=== PATIENT | female | born 1970 | race Caucasian/White ===

== ENCOUNTER 2017-03-27 13:41 | Emergency (ER) | payer OTHER ==
[2017-03-27 13:57] VITALS: TEMP 98.3; BMI 27.1
[2017-03-27] MEDS ORDERED: ONDANSETRON 4 MG/2 ML VIAL IVPUSH ONE (14:30)
[2017-03-27] MEDS ORDERED: KETOROLAC TROMETHAMINE 30 MG/1 ML VIAL IVPUSH ONE (14:30)
[2017-03-27] MEDS ORDERED: SODIUM CHLORIDE 1,000 ML IV STA (14:30)
[2017-03-27] MEDS ORDERED: ONDANSETRON 4 MG/2 ML VIAL ONE (14:44)
[2017-03-27] MEDS ORDERED: KETOROLAC TROMETHAMINE 30 MG/1 ML VIAL ONE (14:44)
[2017-03-27 14:47] LABS: BASOPHIL 0.7 % (0-2.0); EOSINOPHIL 1.6 % (0-4.5); MCHC 34.6 g/dl (32.0-36.0); MEAN CELL VOLUME 83.6 fl (80-96); MEAN PLT VOLUME 7.2 fl (7.5-11.1); NEUTROPHILS 48.2 % (42.8-82.8); PLATELET COUNT 286 K/MM3 (134-434); RDW 12.9 % (11.6-15.6); WHITE BLOOD COUNT 6.8 K/mm3 (4.0-10.0)
[2017-03-27 14:50] LABS: URINE APPEARANCE CLEAR; URINE BILIRUBIN NEGATIVE (NEGATIVE); URINE BLOOD NEGATIVE (NEGATIVE); URINE COLOR LTYELLOW; URINE GLUCOSE (UA) NEGATIVE (NEGATIVE); URINE KETONE NEGATIVE (NEGATIVE); URINE LEUK ESTERASE NEGATIVE (NEGATIVE); URINE NITRITE NEGATIVE (NEGATIVE); URINE PROTEIN NEGATIVE (NEGATIVE); URINE UROBILINOGEN NEGATIVE mg/dL (0.2-1.0)
[2017-03-27 15:08] LABS: ALBUMIN 3.6 g/dl (3.4-5.0); ALK PHOS 71 U/L (45-117); ANION GAP 9 (8-16); BILIRUBIN,TOTAL 0.2 mg/dL (0.2-1.0); CALCIUM 8.9 mg/dL (8.5-10.1); CO2 26 mmol/L (21-32); CREATININE 0.6 mg/dL (0.55-1.02); GLUCOSE,RANDOM 88 mg/dL (74-106); SGOT/AST 15 U/L (15-37); SGPT/ALT 17 U/L (12-78); TOT PROT 6.9 g/dl (6.4-8.2)
--- NOTE | 2017-03-27 15:18 | PDOC ---
History of Present Illness - General Chief Complaint: Pain, Acute Stated Complaint: BACK PAIN Time Seen by Provider: 03/27/17 14:06 History Source: Patient Exam Limitations: No Limitations - History of Present Illness Travel History: No Initial Comments: 03/27/17 14:14 46-year-old female with complaints of Left flank pain associated with urinary frequency and chills. Patient states symptoms began a few days ago and worsened in severity to the point that she is nauseous and came to the ER for further evaluation. Patient denies history of renal colic, recent UTI, or recorded temperature, radiation of pain, diarrhea, vaginal discharge, or abdominal distention. Patient does state history of constipation and is currently on MiraLAX daily but did move her bowels yesterday. Timing/Duration: reports: getting worse, intermittent Quality: reports: moderate, sharpness Abdominal Pain Onset Location: reports: flank (lt) Pain Radiation: reports: no radiation Aggravating Factors: improves with: None Alleviating Factors: improves with: None Past History - Travel Traveled outside of the country in the last 30 days: No Close contact w/someone who was outside of country & ill: No - Past Medical History Allergies/Adverse Reactions: Allergies Allergy/AdvReac Type Severity Reaction Status Date / Time No Known Allergies Allergy Verified 03/27/17 13:58 Home Medications: Ambulatory Orders Fluoxetine HCl [Prozac] 10 mg PO DAILY 03/27/17 Nadolol [Corgard -] 20 mg PO DAILY 03/27/17 Pramipexole Di-HCl [Mirapex] 0.5 mg PO BID 03/27/17 Psychiatric Problems: Yes (anxiety) Other medical history: r ovarian cyst, polyp removed from ovary - Surgical History Abdominal Surgery: (hernia, fibroid removed from r breast) - Immunization History Immunization Up to Date: Yes - Psycho/Social/Smoking Cessation Hx Anxiety: Yes Suicidal Ideation: No Smoking Status: No Smoking History: Former smoker Have you smoked in the past 12 months: Yes Number of Cigarettes Smoked Daily: 3 Information on smoking cessation initiated: No Hx Alcohol Use: No Drug/Substance Use Hx: No Substance Use Type: None Hx Substance Use Treatment: No Patient Lives Alone: No Lives with/in: spouse/SO Review of Systems - Review of Systems Able to Perform ROS?: Yes Constitutional: Yes: Chills HEENTM: No: Symptoms Reported Respiratory: No: Symptoms reported Cardiac (ROS): No: Symptoms Reported ABD/GI: Yes: Nausea, Abdominal cramping : Yes: Frequency, Flank Pain Musculoskeletal: No: Symptoms Reported Integumentary: No: Symptoms Reported Neurological: No: Symptoms reported Hematologic/Lymphatic: No: Symptoms Reported *Physical Exam - Vital Signs Last Vital Signs Temp Pulse Resp BP Pulse Ox 98.3 F 94 H 16 146/94 99 03/27/17 13:54 03/27/17 13:54 03/27/17 13:54 03/27/17 13:54 03/27/17 13:54 - Physical Exam General Appearance: Yes: Nourished, Appropriately Dressed. No: Apparent Distress Neck: positive: Supple Respiratory/Chest: positive: Lungs Clear, Normal Breath Sounds. negative: Respiratory Distress, Accessory Muscle Use Cardiovascular: positive: Regular Rhythm, Regular Rate. negative: Murmur Gastrointestinal/Abdominal: positive: Normal Bowel Sounds, Soft, Tenderness ( left flank, ). negative: Distended, Guarding, Rebound Musculoskeletal: positive: CVA Tenderness (L) Integumentary: positive: Normal Color, Warm, Moist Neurologic: positive: Motor Strength 5/5 ( ambulatory) ED Treatment Course - LABORATORY CBC & Chemistry Diagram: 03/27/17 14:40 03/27/17 14:40 - ADDITIONAL ORDERS Additional order review: Laboratory Results 03/27/17 03/27/17 14:40 14:40 Sodium 139 Potassium 3.9 Chloride 104 Carbon Dioxide 26 Anion Gap 9 BUN 8 D Creatinine 0.6 Creat Clearance w eGFR > 60 Random Glucose 88 Calcium 8.9 Total Bilirubin 0.2 D AST 15 D ALT 17 Alkaline Phosphatase 71 Total Protein 6.9 Albumin 3.6 Urine Color Ltyellow Urine Appearance Clear Urine pH 7.0 D Urine Protein Negative Urine Glucose (UA) Negative Urine Ketones Negative Urine Blood Negative Urine Nitrite Negative Urine Bilirubin Negative Urine Urobilinogen Negative Ur Leukocyte Esterase Negative Urine HCG, Qual Negative 03/27/17 14:40 RBC 4.23 MCV 83.6 MCHC 34.6 RDW 12.9 MPV 7.2 L Neutrophils % 48.2 D Lymphocytes % 42.3 H D Monocytes % 7.2 Eosinophils % 1.6 Basophils % 0.7 - RADIOLOGY Radiology Studies Ordered: Category Date Time Status SPIRAL- RENAL-STONE CT [CT] Stat CT Scan 03/27/17 14:30 Ordered - Medications Given in the ED: ED Medications Discontinued Medications Generic Name Dose Route Start Last Admin Trade Name Leeanne PRN Reason Stop Dose Admin Ketorolac Tromethamine 30 mg 03/27/17 14:30 03/27/17 15:07 Toradol Injection - IVPUSH 03/27/17 14:31 30 mg ONCE ONE Administration Ondansetron HCl 4 mg 03/27/17 14:30 03/27/17 14:48 Zofran Injection IVPUSH 03/27/17 14:31 4 mg ONCE ONE Administration Medical Decision Making - Medical Decision Making 03/27/17 15:17 Patient with complaints of worsening left flank pain associated with chills and nausea. Patient exam had left CVA tenderness concerning for renal colic patient ordered for urine urine , analgesics, antiemetics, and CT spiral stone along with IV fluids. Patient also ordered for labs. 03/27/17 16:07 Laboratory Tests 03/27/17 03/27/17 03/27/17 14:40 14:40 14:40 WBC 6.8 Hgb 12.3 Hct 35.4 Neutrophils % 48.2 D Sodium 139 Potassium 3.9 Chloride 104 Carbon Dioxide 26 Anion Gap 9 BUN 8 D Creatinine 0.6 Random Glucose 88 Calcium 8.9 AST 15 D ALT 17 Urine Ketones Negative Urine Nitrite Negative Urine HCG, Qual Negative CT shows no hydronephrosis or stones identified. Low density changes seen in both ovaries clinical correlation for possibility of ovaries correlation with transvaginal sonographic is recommended. There is otherwise no evidence of appendicitis, diverticulitis or colitis. Pt ordered for transvaginal ultrasound 03/27/17 18:20 Ultrasound shows a small left ovarian cyst measuring 2.7 x 2.1 with normal arterial flow to both ovaries bilateral with no evidence of torsion. There is no evidence of adnexal masses or free fluid collection. Patient be discharged home to follow-up with her PCP . *DC/Admit/Observation/Transfer Diagnosis at time of Disposition: Left flank pain, Ovarian cyst - Discharge Dispostion Disposition: HOME Condition at time of disposition: Good - Referrals Referrals: Katarzyna Saenz MD [Primary Care Provider] - - Patient Instructions Printed Discharge Instructions: DI for Ovarian Cyst Additional Instructions: Please follow-up with your primary care physician and may take Tylenol Motrin for discomfort. If symptoms worsen please return to the ED.
[2017-03-27 18:50] VITALS: BP 135/75; PULSE 78
== END 2017-03-27 18:50 | disposition home or self-care (01) ==
LOC: JER 13:41
PROC: 3E0333Z Introduction of Anti-inflammatory into Peripheral Vein, Percutaneous Approach (ICD-10-PCS; principal; 2017-03-27)
PROC: 3E033GC Introduction of Other Therapeutic Substance into Peripheral Vein, Percutaneous Approach (ICD-10-PCS; 2017-03-27)
DX: N83.202 Unspecified ovarian cyst, left side (principal)
CPT/HCPCS: 36415; 74176; 76830-TC; 80053; 81003; 84703; 85025; 87086; 99283-25

== ENCOUNTER 2017-09-25 11:26 | Emergency (ER) | payer OTHER ==
[2017-09-25 12:14] VITALS: BP 139/92; PULSE 79; TEMP 98.3; BMI 27.1
--- NOTE | 2017-09-25 12:42 | PDOC ---
History of Present Illness - General Chief Complaint: Pain, Acute Stated Complaint: LUMP ON LT SIDE Time Seen by Provider: 09/25/17 12:41 History Source: Patient Exam Limitations: No Limitations - History of Present Illness Initial Comments: CHIEF COMPLAINT: 46 y/o female c/o worsening left groin pain x 1 month. HISTORY OF PRESENT ILLNESS: The patient states that over the past few days she' s noticed her left groin pain became worse. She also admits to feeling like everything is going to "fall out" of her vagina. She states for the past few days she's also developed urge incontinence. She does admit to chronic constipation and straining to have a BM which she thinks has exacerbated her symptoms. Vital signs on arrival are within normal limits. REVIEW OF SYSTEMS: GENERAL/CONSTITUTIONAL: No fever/chills. No weakness. No weight change. GASTROINTESTINAL:+lower abdominal discomfort and left pelvic pain GENITOURINARY: +urge incontinence. MUSCULOSKELETAL: No joint or muscle swelling or pain. No neck or back pain. SKIN: No rash or easy bruising. NEUROLOGIC: No headache, vertigo, loss of consciousness, or loss of sensation. PHYSICAL EXAM: GENERAL: The patient is awake, alert, and fully oriented, in no acute distress. HEAD: Normal with no signs of trauma. EYES: Pupils equal, round and reactive to light, extraocular movements intact, sclera anicteric, conjunctiva clear. ABDOMINAL: Minimal suprapubic and LLQ TTP. No rebound, guarding or rigidity. No hernias appreciated PELVIS: left inguinal region with 3cm long, movable, edematous region that is TTP. VAGINAL: Normal EXTREMITIES: Normal range of motion, no edema. NEUROLOGICAL: Normal speech, normal gait. SKIN: Warm, Dry, normal turgor, no rashes or lesions noted. Past History - Past Medical History Allergies/Adverse Reactions: Allergies Allergy/AdvReac Type Severity Reaction Status Date / Time No Known Allergies Allergy Verified 09/25/17 12:09 Home Medications: Ambulatory Orders Fluoxetine HCl [Prozac] 10 mg PO DAILY 03/27/17 Nadolol [Corgard -] 20 mg PO DAILY 03/27/17 Pramipexole Di-HCl [Mirapex] 0.5 mg PO BID 03/27/17 CVA: No COPD: No DVT: No Psychiatric Problems: Yes (anxiety) - Surgical History Abdominal Surgery: (hernia, fibroid removed from r breast) - Immunization History Immunization Up to Date: Yes - Suicide/Smoking/Psychosocial Hx Smoking Status: No Smoking History: Former smoker Have you smoked in the past 12 months: Yes Number of Cigarettes Smoked Daily: 3 If you are a former smoker, when did you quit?: 4YRS AGO Information on smoking cessation initiated: No Hx Alcohol Use: No Drug/Substance Use Hx: No Substance Use Type: None Hx Substance Use Treatment: No *Physical Exam - Vital Signs Last Vital Signs Temp Pulse Resp BP Pulse Ox 98.3 F 79 17 139/92 100 09/25/17 12:10 09/25/17 12:10 09/25/17 12:10 09/25/17 12:10 09/25/17 12:10 Medical Decision Making - Medical Decision Making A/P: 46 y/o female with recent urge incontinence most likely secondary to straining to have a BM. Also left pelvic pain with inflammation. Plan is as follows: 1. UA/culture 2. Pelvic and transvaginal ultrasound UA - normal Pelvic and transvaginal ultrasound IMPRESSION: Small left ovarian simple cyst/dominant follicle now measuring 1.3 x 1cm. Normal thickness of the endometrial stripe. However, it demonstrates a slightly lobulated contour at the fundus. Correlation with a transvaginal ultrasound exam of the pelvis in first week of the nest menstrual cycle is needed for further evaluation. If this finding persists, correlation with a hystero sonogram could be obtained to rule out underlying lesion. Patient given results and a copy to bring to her BUSINESS DEVELOPMENT CONSULTANT. SHe would like a referral to a new BUSINESS DEVELOPMENT CONSULTANT. Suggested Kiegel exercises in the meantime to help with urge incontinence. The patient verbalizes understanding of all instructions, has no further questions and is awaiting discharge. *DC/Admit/Observation/Transfer Diagnosis at time of Disposition: Urge incontinence of urine, Pelvic pain - Discharge Dispostion Disposition: HOME Condition at time of disposition: Good - Referrals Referrals: Katarzyna Saenz MD [Primary Care Provider] - Kajal Antony MD [Staff Physician] - Call tomorrow - Patient Instructions Printed Discharge Instructions: DI for Urinary Incontinence, DI for Pelvic Pain Additional Instructions: Discharge Instructions: -Perform Kiegel exercises multiple times per day to help with urinary incontinence. -Take Motrin if needed for pain -Follow up with Dr. Antony within 2 weeks -Return to the ER with any worsening or concerning symptoms - Post Discharge Activity Forms/Work/School Notes: Back to Work
[2017-09-25 13:28] LABS: URINE APPEARANCE CLEAR; URINE BILIRUBIN NEGATIVE (NEGATIVE); URINE BLOOD NEGATIVE (NEGATIVE); URINE COLOR YELLOW; URINE GLUCOSE (UA) NEGATIVE (NEGATIVE); URINE KETONE NEGATIVE (NEGATIVE); URINE LEUK ESTERASE NEGATIVE (NEGATIVE); URINE NITRITE NEGATIVE (NEGATIVE); URINE PROTEIN NEGATIVE (NEGATIVE); URINE UROBILINOGEN NEGATIVE mg/dL (0.2-1.0)
== END 2017-09-25 15:21 | disposition home or self-care (01) ==
LOC: JERFT 11:26
DX: N83.202 Unspecified ovarian cyst, left side (principal)
CPT/HCPCS: 76830-TC; 76856-TC; 81003; 87086; 99281-25

== ENCOUNTER 2017-12-02 19:39 | Emergency (ER) | payer OTHER ==
[2017-12-02 19:54] VITALS: BP 154/92; PULSE 99; TEMP 98.3; BMI 27.1
--- NOTE | 2017-12-02 19:58 | PDOC ---
Rapid Medical Evaluation Time Seen by Provider: 12/02/17 19:50 Medical Evaluation: Allergies Allergy/AdvReac Type Severity Reaction Status Date / Time No Known Allergies Allergy Verified 12/02/17 19:51 Vital Signs Temp Pulse Resp BP Pulse Ox 98.3 F 99 H 18 154/92 98 12/02/17 19:52 12/02/17 19:52 12/02/17 19:52 12/02/17 19:52 12/02/17 19:52 12/02/17 19:54 I have performed a brief in-person evaluation of this patient. The patient presents with a chief complaint of left flank pain x 3 days and constipation. States pain radiates up into back, with numbness or tingling. Denies dysuria Pertinent physical exam finding are Lungs: unlabored breathing, clear lungs abd: +hypoactive bowels, + tenderness in left lower quadrant pain skin: circular lesion noted on left lower back I have ordered the following: urinalysis, abdomen flat xray The patient will proceed to the ED for further evaluation. Discharge Disposition - Referrals Referrals: Katarzyna Saenz MD [Primary Care Provider] - - Patient Instructions - Post Discharge Activity
[2017-12-02 21:36] LABS: URINE APPEARANCE CLEAR; URINE BILIRUBIN NEGATIVE (<2.0 mg/dL); URINE BLOOD NEGATIVE (NEGATIVE); URINE COLOR STRAW; URINE GLUCOSE (UA) NEGATIVE (NEGATIVE); URINE KETONE NEGATIVE (NEGATIVE); URINE LEUK ESTERASE NEGATIVE (NEGATIVE); URINE NITRITE NEGATIVE (NEGATIVE); URINE PROTEIN NEGATIVE (NEGATIVE); URINE UROBILINOGEN NEGATIVE mg/dL (0.2-1.0)
[2017-12-02] MEDS ORDERED: KETOROLAC TROMETHAMINE 30 MG/1 ML VIAL IVPUSH ONE (22:27)
[2017-12-02 22:28] LABS: BASO % 0.8 % (0-2.0); EOS % 2.6 % (0-4.5); HEMATOCRIT 34.9 % (32.4-45.2); HEMOGLOBIN 12.3 GM/dL (10.7-15.3); LYMPH % 41.9 % (8-40); MCH 29.3 pg (25.7-33.7); MCHC 35.4 g/dl (32.0-36.0); MEAN CELL VOLUME 82.9 fl (80-96); MEAN PLT VOLUME 7.5 fl (7.5-11.1); NEUT % 46.7 % (42.8-82.8); PLATELET COUNT 281 K/MM3 (134-434); RBC 4.21 M/mm3 (3.60-5.2); RDW 13.4 % (11.6-15.6); WHITE BLOOD COUNT 6.4 K/mm3 (4.0-10.0)
--- NOTE | 2017-12-02 22:36 | PDOC ---
History of Present Illness - General Chief Complaint: Pain, Acute Stated Complaint: LEFT SIDE PAIN/RASH Time Seen by Provider: 12/02/17 19:50 - History of Present Illness Initial Comments: 12/02/17 22:33 CHIEF COMPLAINT: left flank pain HISTORY OF PRESENT ILLNESS: 47 yo F with hx of HTN, and recent removal of "polyps" presents to ED with left flank pain x 1 month. Patient states the pain has worsened since she had her polyps removed by her OBGNYN at [facility] (Dr. Luna). She states that the pain worsens from a 3-4 to 8 -9 when she moves or changes position. She denies any fever but reports "some chills" and nausea associated with severe pain. PAST MEDICAL HISTORY: Denies past medical history FAMILY HISTORY: Denies SOCIAL HISTORY: Denies tobacco, alcohol, illicit drug use. SURGICAL HISTORY: Denies ALLERGIES: No known drug allergies REVIEW OF SYSTEMS General/Constitutional: Denies fever or chills. Denies weakness, weight change. HEENT: Denies change in vision. Denies ear pain or discharge. Denies sore throat. Cardiovascular: Denies chest pain or shortness of breath. Respiratory: Denies cough, wheezing, or hemoptysis. Gastrointestinal: Denies nausea, vomiting, diarrhea or constipation. Denies rectal bleeding. Genitourinary: Denies dysuria, frequency, or change in urination. Musculoskeletal: Denies joint or muscle swelling or pain. Denies neck or back pain. Skin and breasts: Denies rash or easy bruising. Neurologic: Denies headache, vertigo, loss of consciousness, or loss of sensation. PHYSICAL EXAM General Appearance: Well-appearing, appropriately dressed. No apparent distress , no intoxication. HEENT: EOMI, PERRLA, normal ENT inspection, normal voice, TMs normal, pharynx normal. No conjunctival pallor. No photophobia, scleral icterus. Neck: Supple. Trachea midline. No tenderness, rigidity, carotid bruit, stridor , lymphadenopathy, or thyromegaly. Respiratory/Chest: Lungs CTAB. No shortness of breath, chest tenderness, respiratory distress, accessory muscle use. No crackles, rales, rhonchi, stridor , wheezing, dullness Cardiovascular: RRR. S1, S2. No JVD, murmur, bradycardia, tachycardia. Vascular Pulses: Dorsalis-Pedis (R): 2+, Dorsalis-Pedis (L): 2+ Gastrointestinal/Abdominal: Normal bowel sounds. Abdomen soft, non-distended. No tenderness or rebound tenderness. No organomegaly, pulsatile mass, guarding , hernia, hepatomegaly, splenomegaly. Lymphatic: No adenopathy, tenderness. Musculoskeletal/Extremities: Normal inspection. FROM of all extremities, normal capillary refill. Pelvis Stable. No CVA tenderness. No tenderness to extremities, pedal edema, swelling, erythema or deformity. Integumentary: Appropriate color, dry, warm. No cyanosis, erythema, jaundice or rash Neurologic: assembly mechanic II-XII intact. Fully oriented, alert. Appropriate mood/affect. Motor strength 5/5. No appreciable EOM palsy, facial droop or sensory deficit. Past History - Past Medical History Allergies/Adverse Reactions: Allergies Allergy/AdvReac Type Severity Reaction Status Date / Time No Known Allergies Allergy Verified 12/02/17 19:51 Home Medications: Ambulatory Orders Fluoxetine HCl [Prozac] 10 mg PO DAILY 03/27/17 Nadolol [Corgard -] 20 mg PO DAILY 03/27/17 Pramipexole Di-HCl [Mirapex] 0.5 mg PO BID 03/27/17 Docusate Sodium [Colace] 100 mg PO DAILY #14 capsule 12/02/17 Polyethylene Glycol 3350 [Miralax (For Daily Use) -] 17 gm PO DAILY #1 bottle Simethicone [Gas Relief] 125 mg PO BID PRN #14 capsule 12/02/17 CVA: No COPD: No DVT: No Psychiatric Problems: Yes (anxiety) - Surgical History Abdominal Surgery: (hernia, fibroid removed from r breast) - Immunization History Immunization Up to Date: Yes - Suicide/Smoking/Psychosocial Hx Smoking Status: No Smoking History: Current some day smoker Have you smoked in the past 12 months: Yes Number of Cigarettes Smoked Daily: 3 If you are a former smoker, when did you quit?: 4YRS AGO Information on smoking cessation initiated: No Hx Alcohol Use: No Drug/Substance Use Hx: No Substance Use Type: None Hx Substance Use Treatment: No *Physical Exam - Vital Signs Last Vital Signs Temp Pulse Resp BP Pulse Ox 98.3 F 99 H 18 154/92 98 12/02/17 19:52 12/02/17 19:52 12/02/17 19:52 12/02/17 19:52 12/02/17 19:52 ED Treatment Course - LABORATORY CBC & Chemistry Diagram: 12/02/17 22:17 12/02/17 22:17 - ADDITIONAL ORDERS Additional order review: Laboratory Results 12/02/17 12/02/17 21:18 21:18 Urine Color Straw Urine Appearance Clear Urine pH 6.0 Ur Specific [place] 1.004 Urine Protein Negative Urine Glucose (UA) Negative Urine Ketones Negative Urine Blood Negative Urine Nitrite Negative Urine Bilirubin Negative Urine Urobilinogen Negative Ur Leukocyte Esterase Negative Urine HCG, Qual Negative 12/02/17 22:17 RBC 4.21 MCV 82.9 MCHC 35.4 RDW 13.4 MPV 7.5 Neutrophils % 46.7 Lymphocytes % 41.9 H Monocytes % 8.0 Eosinophils % 2.6 Basophils % 0.8 - RADIOLOGY Radiology Studies Ordered: Category Date Time Status KIDNEY / RENAL US [US] Stat Ultrasound 12/02/17 22:26 Ordered *DC/Admit/Observation/Transfer Diagnosis at time of Disposition: Constipation - Discharge Dispostion Disposition: HOME Condition at time of disposition: Stable Admit: No - Prescriptions Prescriptions: Docusate Sodium [Colace] 100 mg PO DAILY #14 capsule Polyethylene Glycol 3350 [Miralax (For Daily Use) -] 17 gm PO DAILY #1 bottle Simethicone [Gas Relief] 125 mg PO BID PRN #14 capsule PRN Reason: Gas - Referrals Referrals: Katarzyna Saenz MD [Primary Care Provider] - - Patient Instructions Printed Discharge Instructions: DI for Constipation Additional Instructions: Please take medications as prescribed. As discussed, please follow up with your or first assist registered nurse by the end of the week for further evaluation and continued monitoring. If you develop any fever, chills, vomiting, or any new or worsening symptoms, please return to the ER. - Post Discharge Activity
[2017-12-02] MEDS ORDERED: KETOROLAC TROMETHAMINE 30 MG/1 ML VIAL ONE (22:39)
--- NOTE | 2017-12-02 22:44 | PDOC ---
*Physical Exam - Vital Signs Last Vital Signs Temp Pulse Resp BP Pulse Ox 98.3 F 99 H 18 154/92 98 12/02/17 19:52 12/02/17 19:52 12/02/17 19:52 12/02/17 19:52 12/02/17 19:52 ED Treatment Course - LABORATORY CBC & Chemistry Diagram: 12/02/17 22:17 12/02/17 22:17 - ADDITIONAL ORDERS Additional order review: Laboratory Results 12/02/17 12/02/17 21:18 21:18 Urine Color Straw Urine Appearance Clear Urine pH 6.0 Ur Specific [place] 1.004 Urine Protein Negative Urine Glucose (UA) Negative Urine Ketones Negative Urine Blood Negative Urine Nitrite Negative Urine Bilirubin Negative Urine Urobilinogen Negative Ur Leukocyte Esterase Negative Urine HCG, Qual Negative 12/02/17 22:17 RBC 4.21 MCV 82.9 MCHC 35.4 RDW 13.4 MPV 7.5 Neutrophils % 46.7 Lymphocytes % 41.9 H Monocytes % 8.0 Eosinophils % 2.6 Basophils % 0.8 Medical Decision Making - Medical Decision Making 12/02/17 22:44 agree with care from MARLINE Johnson *DC/Admit/Observation/Transfer Diagnosis at time of Disposition: Constipation - Discharge Dispostion Disposition: HOME Condition at time of disposition: Stable - Prescriptions Prescriptions: Docusate Sodium [Colace] 100 mg PO DAILY #14 capsule Polyethylene Glycol 3350 [Miralax (For Daily Use) -] 17 gm PO DAILY #1 bottle Simethicone [Gas Relief] 125 mg PO BID PRN #14 capsule PRN Reason: Gas - Referrals Referrals: Katarzyna Saenz MD [Primary Care Provider] - - Patient Instructions Printed Discharge Instructions: DI for Constipation Additional Instructions: Please take medications as prescribed. As discussed, please follow up with your cinder block mason by the end of the week for further evaluation and continued monitoring. If you develop any fever, chills, vomiting, or any new or worsening symptoms, please return to the ER. - Post Discharge Activity
[2017-12-02 22:56] LABS: ALBUMIN 3.4 g/dl (3.4-5.0); ANION GAP 6 (8-16); BILIRUBIN,TOTAL 0.1 mg/dL (0.2-1.0); BLOOD UREA NITROGEN 14 mg/dL (7-18); CALCIUM 8.8 mg/dL (8.5-10.1); CHLORIDE 104 mmol/L (98-107); CO2 28 mmol/L (21-32); CREATININE 0.8 mg/dL (0.55-1.02); GLUCOSE,RANDOM 105 mg/dL (74-106); LIPASE 176 U/L (73-393); POTASSIUM 3.8 mmol/L (3.5-5.1); SGOT/AST 18 U/L (15-37); SGPT/ALT 19 U/L (12-78); SODIUM 138 mmol/L (136-145)
[2017-12-02 22:57] LABS: ALK PHOS 73 U/L (45-117); TOT PROT 6.9 g/dl (6.4-8.2)
[2017-12-02] MEDS ORDERED: DOCUSATE SODIUM 100 MG CAPSULE (FP) PO ONE (23:45)
[2017-12-02] MEDS ORDERED: POLYETHYLENE GLYCOL 3350 119 GM BTL PO ONE (23:45)
[2017-12-02] MEDS ORDERED: SIMETHICONE 80 MG TAB.CHEW (FP) PO ONE (23:48)
[2017-12-03] MEDS ORDERED: DOCUSATE SODIUM 100 MG CAPSULE (FP) PO ONE (00:17)
== END 2017-12-03 00:21 | disposition home or self-care (01) ==
LOC: JER 19:39
PROC: 3E0333Z Introduction of Anti-inflammatory into Peripheral Vein, Percutaneous Approach (ICD-10-PCS; principal; 2017-12-02)
DX: K59.00 Constipation, unspecified (principal)
CPT/HCPCS: 36415; 74019-TC-FY; 76775-TC; 80053; 81003; 83690; 84703; 85025; 96374; 99283-25

== ENCOUNTER 2018-09-27 19:35 | Emergency (ER) | payer OTHER ==
[2018-09-27 19:49] VITALS: BP 119/80; PULSE 96; TEMP 97.5; BMI 26.7
--- NOTE | 2018-09-27 20:23 | PDOC ---
History of Present Illness <Nancy Contreras - Last Filed: 09/27/18 22:40> - History of Present Illness Initial Comments: 09/27/18 20:22 Ms. Kennedy is a 47 yo female w/ pmh of depression, restless leg syndrome, and "racing heart" for which she takes a beta kike who presents for evaluation of 1 day history of perceived lower extremity weakness, LLQ abdominal pain, and nausea. Patient reports she has had similar problems in the past and been evaluated for kidney or ovary problems with minimal findings. She further reports she has had increased urination today and endorses an episode of bloody bowel movement a few days ago. The patient denies chest pain, shortness of breath, headache and dizziness. Denies fever, chills, vomit, diarrhea and constipation. Denies dysuria, frequency, urgency and hematuria. <Brian Awad - Last Filed: 09/28/18 00:22> - General Chief Complaint: Nausea/Vomiting Stated Complaint: Nausea AND BODY PAIN Time Seen by Provider: 09/27/18 19:47 Past History <Nancy Contreras - Last Filed: 09/27/18 22:40> - Past Medical History Cancer: No Cardiac Disorders: No CVA: No COPD: No DVT: No Psychiatric Problems: Yes (anxiety) - Surgical History Abdominal Surgery: (hernia, fibroid removed from r breast) - Immunization History Immunization Up to Date: Yes - Suicide/Smoking/Psychosocial Hx Smoking Status: No Smoking History: Never smoked Have you smoked in the past 12 months: No Number of Cigarettes Smoked Daily: 3 If you are a former smoker, when did you quit?: 2013 Information on smoking cessation initiated: No Hx Alcohol Use: No Drug/Substance Use Hx: No Substance Use Type: None Hx Substance Use Treatment: No <Brian Awad - Last Filed: 09/28/18 00:22> - Past Medical History Allergies/Adverse Reactions: Allergies Allergy/AdvReac Type Severity Reaction Status Date / Time No Known Allergies Allergy Verified 09/27/18 20:40 Home Medications: Ambulatory Orders Fluoxetine HCl [Prozac] 10 mg PO DAILY 03/27/17 Nadolol [Corgard -] 20 mg PO DAILY 03/27/17 Pramipexole Di-HCl [Mirapex] 0.5 mg PO BID PRN 09/27/18 Pramipexole Di-HCl [Mirapex] 1 mg PO HS PRN 09/27/18 Review of Systems - Review of Systems Comments:: 09/27/18 20:23 GENERAL/CONSTITUTIONAL: No fever or chills. No weakness. HEAD, EYES, EARS, NOSE AND THROAT: No change in vision. No ear pain or discharge. No sore throat. CARDIOVASCULAR: No chest pain or shortness of breath RESPIRATORY: No cough, wheezing, or hemoptysis. GASTROINTESTINAL: +LLQ abdominal pain radiating to back. +Bowel movement w/ blood on stool as described. Nausea w/out vomiting, diarrhea or constipation. GENITOURINARY: No dysuria, frequency, or change in urination. MUSCULOSKELETAL: No joint or muscle swelling or pain. No neck or back pain. SKIN: No rash NEUROLOGIC: No headache, vertigo, loss of consciousness, or change in strength/ sensation. ENDOCRINE: No increased thirst. No abnormal weight change HEMATOLOGIC/LYMPHATIC: No anemia, easy bleeding, or history of blood clots. ALLERGIC/IMMUNOLOGIC: No hives or skin allergy. <Brian Awad - Last Filed: 09/28/18 00:22> *Physical Exam - Vital Signs Last Vital Signs Temp Pulse Resp BP Pulse Ox 97.5 F L 96 H 20 119/80 100 09/27/18 19:47 09/27/18 19:47 09/27/18 19:47 09/27/18 19:47 09/27/18 19:47 <Nancy Contreras - Last Filed: 09/27/18 22:40> - Vital Signs Last Vital Signs Temp Pulse Resp BP Pulse Ox 97.5 F L 96 H 20 119/80 100 09/27/18 19:47 09/27/18 19:47 09/27/18 19:47 09/27/18 19:47 09/27/18 19:47 - Physical Exam Comments: 09/27/18 20:23 GENERAL: Awake, alert, and fully oriented, in no acute distress HEAD: No signs of trauma, normocephalic, atraumatic EYES: PERRLA, EOMI, sclera anicteric, conjunctiva clear ENT: Auricles normal inspection, hearing grossly normal, nares patent, oropharynx clear without exudates. Moist mucosa NECK: Normal ROM, supple, no lymphadenopathy, JVD, or masses LUNGS: No distress, speaks full sentences, clear to auscultation bilaterally HEART: Regular rate and rhythm, normal S1 and S2, no murmurs, rubs or gallops, peripheral pulses normal and equal bilaterally. ABDOMEN: Soft, nontender, normoactive bowel sounds. No guarding, no rebound. No masses EXTREMITIES: Normal inspection, Normal range of motion, no edema. No clubbing or cyanosis. NEUROLOGICAL: +Limping gait on L side. Cranial nerves II through XII grossly intact. Normal speech, no focal sensorimotor deficits SKIN: Warm, Dry, normal turgor, no rashes or lesions noted. : No CMT; Left sided pelvic TTP. Os closed, no blood noted in vaginal vault. RECTAL: +External hemorrhoids noted. No stool appreciated on rectal exam. <Brian Awad - Last Filed: 09/28/18 00:22> Moderate Sedation - Procedure Monitoring Vital Signs: Procedure Monitoring Vital Signs Temperature 97.5 F L 09/27/18 19:47 Pulse Rate 96 H 09/27/18 19:47 Respiratory Rate 20 09/27/18 19:47 Blood Pressure 119/80 09/27/18 19:47 O2 Sat by Pulse Oximetry (%) 100 09/27/18 19:47 <Nancy Contreras - Last Filed: 09/27/18 22:40> - Procedure Monitoring Vital Signs: Procedure Monitoring Vital Signs Temperature 97.5 F L 09/27/18 19:47 Pulse Rate 96 H 09/27/18 19:47 Respiratory Rate 20 09/27/18 19:47 Blood Pressure 119/80 09/27/18 19:47 O2 Sat by Pulse Oximetry (%) 100 09/27/18 19:47 <Brian Awad - Last Filed: 09/28/18 00:22> ED Treatment Course - LABORATORY CBC & Chemistry Diagram: 09/27/18 21:25 09/27/18 21:25 - ADDITIONAL ORDERS Additional order review: Laboratory Results 09/27/18 09/27/18 09/27/18 21:25 20:54 20:45 Sodium 139 Potassium 4.1 Chloride 106 Carbon Dioxide 24 Anion Gap 9 BUN 14 Creatinine 0.7 Creat Clearance w eGFR > 60 Random Glucose 110 H Calcium 8.8 Total Bilirubin 0.4 AST 20 ALT 22 Alkaline Phosphatase 67 Total Protein 7.2 Albumin 3.8 Urine Color Yellow Urine Appearance Clear Urine pH 6.0 Ur Specific [place] 1.026 Urine Protein Negative Urine Glucose (UA) Negative Urine Ketones Trace H Urine Blood Negative Urine Nitrite Negative Urine Bilirubin Negative Urine Urobilinogen 2.0 H Ur Leukocyte Esterase Negative Urine HCG, Qual Negative Stool Occult Blood Negative 09/27/18 21:25 RBC 4.33 MCV 84.6 MCHC 36.0 RDW 13.7 MPV 7.3 L Neutrophils % 89.4 H D Lymphocytes % 4.7 L D Monocytes % 4.9 Eosinophils % 0.8 Basophils % 0.2 - RADIOLOGY Radiology Studies Ordered: Category Date Time Status LUMBAR SPINE CT W/O CONTRAST [CT] Stat CT Scan 09/27/18 21:06 Ordered <Nancy Contreras - Last Filed: 09/27/18 22:40> - LABORATORY CBC & Chemistry Diagram: 09/27/18 21:25 09/27/18 21:25 <Brian Awad - Last Filed: 09/28/18 00:22> Medical Decision Making - Medical Decision Making 09/28/18 00:15 Ms. Kennedy is a 47 yo female w/ pmh as described who presents for evaluation of perceived leg weakness with additional abdominal pain. Upon repeat discussion patient reports she has had similar pain for over a month. Is concerned today as she has a breast biopsy scheduled for next week 2/2 changes noted on mammogram and has become anxious over it. Patient has previously had disc bulges noted on CT; given patient's perceived leg weakness decision made to CT lumbar spine for further evaluation. Small L1-2 disc which mildly narrows left lateral recess noted as well as bulging disc osteophyte complex at L5/S1 level; may mildly compress descending right S1 nerve root. Also moderate right neural frontal narrowing which likely compresses exiting right L5 nerve. Patient given symptomatic relief with fluids and zofran as well with some improvement of symptoms. Patient made aware of CT results and will follow-up with pcp. Given chronicity of pain and previous evaluation for same pain with no acute findings decision made to withhold further evaluation at this time. Discharging to home for further outpatient evaluation. Patient verbalized agreement with this plan and will comply. No concern for acute process at this time. Laboratory Results - last 24 hr 01/09/27/18 09/27/18 20:45 20:54 21:25 WBC 9.5 RBC 4.33 Hgb 13.2 Hct 36.6 MCV 84.6 MCH 30.4 MCHC 36.0 RDW 13.7 Plt Count 281 MPV 7.3 L Absolute Neuts (auto) 8.5 H Neutrophils % 89.4 H D Lymphocytes % 4.7 L D Monocytes % 4.9 Eosinophils % 0.8 Basophils % 0.2 Nucleated RBC % 0 Sodium Potassium Chloride Carbon Dioxide Anion Gap BUN Creatinine Creat Clearance w eGFR Random Glucose Calcium Total Bilirubin AST ALT Alkaline Phosphatase Total Protein Albumin Urine Color Yellow Urine Appearance Clear Urine pH 6.0 Ur Specific [place] 1.026 Urine Protein Negative Urine Glucose (UA) Negative Urine Ketones Trace H Urine Blood Negative Urine Nitrite Negative Urine Bilirubin Negative Urine Urobilinogen 2.0 H Ur Leukocyte Esterase Negative Urine HCG, Qual Negative Stool Occult Blood Negative 09/27/18 21:25 WBC RBC Hgb Hct MCV MCH MCHC RDW Plt Count MPV Absolute Neuts (auto) Neutrophils % Lymphocytes % Monocytes % Eosinophils % Basophils % Nucleated RBC % Sodium 139 Potassium 4.1 Chloride 106 Carbon Dioxide 24 Anion Gap 9 BUN 14 Creatinine 0.7 Creat Clearance w eGFR > 60 Random Glucose 110 H Calcium 8.8 Total Bilirubin 0.4 AST 20 ALT 22 Alkaline Phosphatase 67 Total Protein 7.2 Albumin 3.8 Urine Color Urine Appearance Urine pH Ur Specific [place] Urine Protein Urine Glucose (UA) Urine Ketones Urine Blood Urine Nitrite Urine Bilirubin Urine Urobilinogen Ur Leukocyte Esterase Urine HCG, Qual Stool Occult Blood <Brian Awad - Last Filed: 09/28/18 00:22> *DC/Admit/Observation/Transfer <Nancy Contreras - Last Filed: 09/27/18 22:40> <Brian Awad - Last Filed: 09/28/18 00:22> Diagnosis at time of Disposition: Abdominal pain Qualifiers: Abdominal location: unspecified location Qualified Code(s): R10.9 - Unspecified abdominal pain Leg weakness Qualifiers: Laterality: unspecified laterality Qualified Code(s): R29.898 - Other symptoms and signs involving the musculoskeletal system - Discharge Dispostion Disposition: HOME - Referrals Referrals: Nik Shane MD, MD [Primary Care Provider] - - Patient Instructions Printed Discharge Instructions: DI for Abdominal Pain-Adult Additional Instructions: You were evaluated today in the ER for your abdominal pain and leg weakness. No concerning findings were found at this time. We performed a CT of your lumbar spine and provided you with the results. No acute findings were found at this time. Please follow-up with primary care provider next week as discussed. Return to ER if any exacerbation of pain, fever, chills, or other concerning symptoms. - Post Discharge Activity Forms/Work/School Notes: Back to Work
[2018-09-27 21:14] LABS: URINE APPEARANCE CLEAR; URINE BILIRUBIN NEGATIVE (<2.0 mg/dL); URINE COLOR YELLOW; URINE GLUCOSE (UA) NEGATIVE (NEGATIVE); URINE KETONE TRACE (NEGATIVE); URINE LEUK ESTERASE NEGATIVE (NEGATIVE); URINE NITRITE NEGATIVE (NEGATIVE); URINE PROTEIN NEGATIVE (NEGATIVE)
[2018-09-27 21:16] LABS: HCG,QUALITATIVE URINE Negative
[2018-09-27 21:38] LABS: BASO % 0.2 % (0-2.0); EOS % 0.8 % (0-4.5); HEMATOCRIT 36.6 % (32.4-45.2); HEMOGLOBIN 13.2 GM/dL (10.7-15.3); LYMPH % 4.7 % (8-40); MCH 30.4 pg (25.7-33.7); MEAN CELL VOLUME 84.6 fl (80-96); MEAN PLT VOLUME 7.3 fl (7.5-11.1); MONO % 4.9 % (3.8-10.2); NEUT % 89.4 % (42.8-82.8); PLATELET COUNT 281 K/MM3 (134-434); RBC 4.33 M/mm3 (3.60-5.2); RDW 13.7 % (11.6-15.6); WHITE BLOOD COUNT 9.5 K/mm3 (4.0-10.0)
[2018-09-27 22:11] LABS: ALBUMIN 3.8 g/dl (3.4-5.0); ALK PHOS 67 U/L (45-117); ANION GAP 9 MMOL/L (8-16); BILIRUBIN,TOTAL 0.4 mg/dL (0.2-1); BLOOD UREA NITROGEN 14 mg/dL (7-18); CALCIUM 8.8 mg/dL (8.5-10.1); CHLORIDE 106 mmol/L (98-107); CO2 24 mmol/L (21-32); CREATININE 0.7 mg/dL (0.55-1.3); GLUCOSE,RANDOM 110 mg/dL (74-106); POTASSIUM 4.1 mmol/L (3.5-5.1); SGOT/AST 20 U/L (15-37); SGPT/ALT 22 U/L (13-61); SODIUM 139 mmol/L (136-145); TOT PROT 7.2 g/dl (6.4-8.2)
[2018-09-27] MEDS ORDERED: SODIUM CHLORIDE 0.9% 500 ML INFUS.BAG IV ONE (22:33)
--- NOTE | 2018-09-27 22:45 | PDOC ---
Attending Attestation - HPI HPI: This patient is a 47 year old female with PMHx of depression, RLS, racing heart (takes a beta kike), who presents with LLQ abdominal pain that wraps around, constant, with associated nausea, an LE pain and weakness. Patient states that the leg weakness has been ongoing for about a month and a half. She also reports feeling nauseous and vomited (x1) tonight. She reports having bloody BM with mucus earlier this week. She states that she has a breast biopsy this . Family Hx: Mother from breast cancer (early 50s). 09/27/18 22:58 - Physicial Exam PE: GENERAL: Awake, alert, and fully oriented, in no acute distress HEAD: No signs of trauma EYES: PERRLA, EOMI, sclera anicteric, conjunctiva clear ENT: Auricles normal inspection, hearing grossly normal, nares patent, oropharynx clear without exudates. Moist mucosa NECK: Normal ROM, supple, no lymphadenopathy, JVD, or masses LUNGS: Breath sounds equal, clear to auscultation bilaterally. No wheezes, and no crackles HEART: Regular rate and rhythm, normal S1 and S2, no murmurs, rubs or gallops ABDOMEN: Soft, nontender, normoactive bowel sounds. No guarding, no rebound. No masses EXTREMITIES: Normal range of motion, no edema. No clubbing or cyanosis. No cords, erythema, or tenderness NEUROLOGICAL: Cranial nerves II through XII grossly intact. Normal speech. SKIN: Warm, Dry, normal turgor, no rashes or lesions noted. Agree with resident rectal and pelvic exam. <Stefani Kay - Last Filed: 09/27/18 23:00> - Resident Resident Name: Brian Awad - ED Attending Attestation I have performed the following: I have examined & evaluated the patient, The case was reviewed & discussed with the resident, I agree w/resident's findings & plan - Medical Decision Making 09/28/18 00:50 Patient Name: JESSY WEBSTER THIS IS A PRELIMINARY REPORT FROM [facility] DATE OF SERVICE: 2018-09-27 23:34:37 IMAGES: 328 EXAM: LUMBAR SPINE CT W/O CONTRAST HISTORY: Leg weakness COMPARISON: None. FINDINGS: No fracture or dislocation. There is a mild scoliosis. No suspicious bone lesions. There is a small bulge of the L1-2 disc which mildly narrows the left lateral recess. The L2-3, L3-4 and L4-5 discs appear normal although there is multilevel mild facet joint arthrosis without significant mass effect. There is a moderate-sized bulging disc osteophyte complex at the L5/S1 level as well as moderate right-sided and mild left-sided facet joint arthrosis which moderately narrows the right lateral recess and may mildly compress the descending right S1 nerve root. There is moderate right neural frontal narrowing which likely compresses the exiting right L5 nerve. IMPRESSION: Mild left lateral recess narrowing L1/2 due to disc bulge. Moderate right neural foraminal and right lateral recess narrowing at L5/S1 level due to a bulging disc ossified complex and facet joint arthrosis which may compress the exiting right L5 and descending right S1 nerve roots. Pt is feeling better with hydration and all labs are normal. She admits that she is stressed out because she has a breast mass that needs to be biopsied on Fri. Pt is tearful and we discuss the fact that the stress could be contibuting to her pains. Pt will be given days off to follow with her PMD. <Nancy Contreras - Last Filed: 09/28/18 00:56>
[2018-09-27] MEDS ORDERED: ONDANSETRON 4 MG/2 ML VIAL IVPUSH ONE (23:13)
[2018-09-27] MEDS ORDERED: ONDANSETRON 4 MG/2 ML VIAL ONE (23:42)
== END 2018-09-28 00:53 | disposition home or self-care (01) ==
LOC: JERFT 19:35 → JER 19:35
PROC: 3E033GC Introduction of Other Therapeutic Substance into Peripheral Vein, Percutaneous Approach (ICD-10-PCS; principal; 2018-09-27)
DX: R10.9 Unspecified abdominal pain (principal); R29.898 Other symptoms and signs involving the musculoskeletal system; F41.9 Anxiety disorder, unspecified
CPT/HCPCS: 36415; 72131-TC; 80053; 81003; 82272; 84703; 85025; 87086; 99282-25

== ENCOUNTER 2018-09-28 13:52 | Emergency (ER) | payer OTHER ==
[2018-09-28 14:09] VITALS: BP 105/70; PULSE 103; TEMP 99.6; BMI 26.7
[2018-09-28] MEDS ORDERED: FAMOTIDINE 20 MG/50 ML IVPB 50 MG/125 ML MG IVPB ONE (14:27)
[2018-09-28] MEDS ORDERED: SODIUM CHLORIDE 0.9% 1000 ML INFUS.BAG IV ONE (14:27)
[2018-09-28] MEDS ORDERED: ACETAMINOPHEN 1000 MG/100 ML VIAL (NON FORMULARY) IVPB ONE (14:29)
--- NOTE | 2018-09-28 14:54 | PDOC ---
Attending Attestation - HPI HPI: 09/28/18 15:00 The patient is a 47 year old female with a past medical history of depression, restless leg syndrome, and racing heart here today for evaluation of abdominal pain. She reports abdominal suprapubic pain, right flank pain, and diarrhea. She also notes nausea and vomiting which resolved yesterday. Patient was seen yesterday for similar symptoms. Patient denies headache, lightheadedness. Denies fever, chills. Denies chest pain, shortness of breath. Denies neurologic symptoms. Denies travel or suspicious food intake. Allergies: NKA PCP: Nik Shane - Medical Decision Making 09/28/18 15:00 Documentation prepared by KIMO Walton, acting as medical billing assistant for Fernanda Osuna MD. <Patrick Jonas - Last Filed: 09/28/18 14:59> - Resident Resident Name: Jae Glass - ED Attending Attestation I have performed the following: I have examined & evaluated the patient, The case was reviewed & discussed with the resident, I agree w/resident's findings & plan, Exceptions are as noted - Physicial Exam PE: GENERAL: Awake, alert, and fully oriented, in no acute distress HEAD: No signs of trauma EYES: PERRLA, EOMI, sclera anicteric, conjunctiva clear ENT: Auricles normal inspection, hearing grossly normal, nares patent, oropharynx clear without exudates. Dry mucosa NECK: Normal ROM, supple, no lymphadenopathy, JVD, or masses LUNGS: Breath sounds equal, clear to auscultation bilaterally. No wheezes, and no crackles HEART: Regular rate and rhythm, normal S1 and S2, no murmurs, rubs or gallops ABDOMEN: Soft, diffuse mild tenderness, normoactive bowel sounds. No guarding, no rebound. No masses EXTREMITIES: Normal range of motion, no edema. No clubbing or cyanosis. No cords, erythema, or tenderness NEUROLOGICAL: Cranial nerves II through XII grossly intact. Normal speech, normal gait. Motor and sensation intact SKIN: Warm, Dry, normal turgor, no rashes or lesions noted. - Medical Decision Making Pt with 2 ED visits with similar GI symptoms. No recent antibiotic use, CDiff unlikely. Will obtain CT to further evaluate. <Fernanda Osuna - Last Filed: 09/29/18 11:15>
[2018-09-28] MEDS ORDERED: FAMOTIDINE 20 MG/50 ML IVPB 20 MG/50 ML MG IVPB ONE (15:00)
[2018-09-28] MEDS ORDERED: ACETAMINOPHEN INJECTION 100 ML IVPB ONE (15:00)
--- NOTE | 2018-09-28 15:00 | PDOC ---
History of Present Illness - General Chief Complaint: Respiratory Stated Complaint: FEVER Time Seen by Provider: 09/28/18 13:58 History Source: Patient Exam Limitations: No Limitations - History of Present Illness Initial Comments: 09/28/18 14:51 The patient is a 47F with a PMH of depression, restless leg syndrome, and "racing heart" who presents to the ER with complaints of abdominal pain. The patient states that she has suprapubic abdominal pain with profuse, watery diarrhea. She cannot describe the pain any further than "it hurts" but admits to R flank pain which "also hurts". She denies antibiotic use. Past History - Past Medical History Allergies/Adverse Reactions: Allergies Allergy/AdvReac Type Severity Reaction Status Date / Time No Known Allergies Allergy Verified 09/27/18 20:40 Home Medications: Ambulatory Orders Fluoxetine HCl [Prozac] 10 mg PO DAILY 03/27/17 Nadolol [Corgard -] 20 mg PO DAILY 03/27/17 Pramipexole Di-HCl [Mirapex] 0.5 mg PO BID PRN 09/27/18 Pramipexole Di-HCl [Mirapex] 1 mg PO HS PRN 09/27/18 Acetaminophen [Tylenol] 650 mg PO QID PRN 09/28/18 Cancer: No Cardiac Disorders: No CVA: No COPD: No DVT: No Psychiatric Problems: Yes (anxiety) - Surgical History Abdominal Surgery: (hernia, fibroid removed from r breast) - Immunization History Immunization Up to Date: Yes - Suicide/Smoking/Psychosocial Hx Smoking Status: No Smoking History: Smoker current status UNK Have you smoked in the past 12 months: No Number of Cigarettes Smoked Daily: 3 If you are a former smoker, when did you quit?: 2013 Hx Alcohol Use: No Drug/Substance Use Hx: No Substance Use Type: None Hx Substance Use Treatment: No Review of Systems - Review of Systems Able to Perform ROS?: Yes Comments:: 09/28/18 15:08 GENERAL/CONSTITUTIONAL: Positive for fevers. No chills. No weakness. HEAD, EYES, EARS, NOSE AND THROAT: No change in vision. No ear pain or discharge. No sore throat. CARDIOVASCULAR: No chest pain, palpitations, or lightheadedness. RESPIRATORY: No cough, wheezing, shortness of breath, or hemoptysis. GASTROINTESTINAL: Positive for nausea, vomiting, diarrhea, and abdominal pain. GENITOURINARY: Positive for R flank pain. No dysuria, frequency, hematuria, or change in urination. MUSCULOSKELETAL: Positive for myalgias. No joint or muscle swelling or pain. No neck or back pain. SKIN: No rash or lesions. NEUROLOGIC: No headache, numbness, tingling, focal weakness, loss of consciousness, or change in strength/sensation. Is the patient limited Finnish proficient: No *Physical Exam - Vital Signs Last Vital Signs Temp Pulse Resp BP Pulse Ox 99.6 F 103 H 22 H 105/70 99 09/28/18 14:00 09/28/18 14:00 09/28/18 14:00 09/28/18 14:00 09/28/18 14:00 - Physical Exam Comments: 09/28/18 15:12 GENERAL: Well developed, well nourished. Awake and alert. In mild distress. HEENT: Normocephalic, atraumatic. Hearing grossly normal. Moist mucous membranes. PERRLA, EOMI. No conjunctival pallor. NECK: Supple. Full ROM. No JVD. CARDIOVASCULAR: Regular rate and rhythm. No murmurs, rubs, or gallops. PULMONARY: No evidence of respiratory distress. Lungs clear to auscultation bilaterally. No wheezing, rales or rhonchi. ABDOMINAL: Soft. Tender to deep palpation in suprapubic abdomen. Non-distended. No rebound or guarding. GENITOURINARY: Mild R CVA tenderness. MUSCULOSKELETAL: Normal range of motion at all joints. No bony deformities or tenderness. EXTREMITIES: No cyanosis. No clubbing. No edema. No calf tenderness or swelling. SKIN: Warm and dry. Normal capillary refill. No rashes. No jaundice. NEUROLOGICAL: Alert, awake, appropriate. Cranial nerves 2-12 grossly intact. Normal speech. Gait is normal without ataxia. PSYCHIATRIC: Cooperative. Good eye contact. Appropriate mood and affect. Moderate Sedation - Procedure Monitoring Vital Signs: Procedure Monitoring Vital Signs Temperature 99.6 F 09/28/18 14:00 Pulse Rate 103 H 09/28/18 14:00 Respiratory Rate 22 H 09/28/18 14:00 Blood Pressure 105/70 09/28/18 14:00 O2 Sat by Pulse Oximetry (%) 99 09/28/18 14:00 ED Treatment Course - LABORATORY CBC & Chemistry Diagram: 09/28/18 14:44 09/28/18 14:44 - RADIOLOGY Radiology Studies Ordered: Category Date Time Status ABDOMEN & PELVIS CT WITH CONTR [CT] Stat CT Scan 09/28/18 14:28 Ordered Medical Decision Making - Medical Decision Making 09/28/18 15:13 The patient is a 47F with a PMH of depression and restless leg syndrome who presents to the ER for 2 days of abdominal pain and diarrhea with resolved nausea and vomiting, as well as mild R flank pain. THe patient presented yesterday for atypical leg weakness with CT lumbar negative, UA and upreg negative, and CBC and CMP negative. Repeating CBC, CMP to look for infectious process or electrolyte abnormality 2/2 diarrhea. Will order CTAP for undifferentiated abdominal pain. Pending labs and imaging. 09/28/18 16:07 Ca 7.8, corrects to 8.0. Otherwise, CBC and CMP negative. Will reassess. 09/28/18 16:12 Pt states she's feeling better. Pending CTAP. 09/28/18 18:32 CTAP negative. Pt is complaining of continuing headache. Will give toradol and PO challenge. 09/28/18 19:11 Pt passed PO challenge and feels better. WIll d/c w/ PCP f/u. *DC/Admit/Observation/Transfer Diagnosis at time of Disposition: Abdominal pain Qualifiers: Abdominal location: lower abdomen, unspecified Qualified Code(s): R10.30 - Lower abdominal pain, unspecified - Discharge Dispostion Disposition: HOME Condition at time of disposition: Stable Decision to Admit order: No - Referrals - Patient Instructions Printed Discharge Instructions: DI for Abdominal Pain-Adult Additional Instructions: Please follow up with your primary care physician in 2-3 days. Please return to the ER if you have any signs or symptoms of chest pain, shortness of breath, uncontrollable fever, chills, nausea, vomiting, numbness, tingling, or weakness in any part of your body, changes in vision, or slurred speech. Please return to the ER if symptoms persist, worsen, or new symptoms arise. - Post Discharge Activity
[2018-09-28 15:05] LABS: BASO % 0.1 % (0-2.0); EOS % 0.2 % (0-4.5); HEMATOCRIT 33.5 % (32.4-45.2); HEMOGLOBIN 11.7 GM/dL (10.7-15.3); LYMPH % 12.3 % (8-40); MCH 29.5 pg (25.7-33.7); MCHC 34.9 g/dl (32.0-36.0); MEAN CELL VOLUME 84.5 fl (80-96); MEAN PLT VOLUME 7.1 fl (7.5-11.1); MONO % 6.9 % (3.8-10.2); NEUT % 80.5 % (42.8-82.8); PLATELET COUNT 233 K/MM3 (134-434); RBC 3.97 M/mm3 (3.60-5.2); RDW 13.9 % (11.6-15.6); WHITE BLOOD COUNT 5.1 K/mm3 (4.0-10.0)
[2018-09-28 15:20] LABS: ALBUMIN 3.2 g/dl (3.4-5.0); ALK PHOS 59 U/L (45-117); ANION GAP 6 MMOL/L (8-16); BILIRUBIN,TOTAL 0.5 mg/dL (0.2-1); BLOOD UREA NITROGEN 12 mg/dL (7-18); CALCIUM 7.8 mg/dL (8.5-10.1); CHLORIDE 106 mmol/L (98-107); CO2 23 mmol/L (21-32); CREATININE 0.7 mg/dL (0.55-1.3); GLUCOSE,RANDOM 90 mg/dL (74-106); LIPASE 138 U/L (73-393); POTASSIUM 3.8 mmol/L (3.5-5.1); SGOT/AST 16 U/L (15-37); SGPT/ALT 18 U/L (13-61); SODIUM 135 mmol/L (136-145); TOT PROT 6.5 g/dl (6.4-8.2)
[2018-09-28] MEDS ORDERED: KETOROLAC TROMETHAMINE 30 MG/1 ML VIAL IVPUSH ONE (18:31)
[2018-09-28] MEDS ORDERED: KETOROLAC TROMETHAMINE 15 MG/ML VIAL ONE (18:36)
== END 2018-09-28 19:18 | disposition home or self-care (01) ==
LOC: JER 13:52
PROC: 3E033GC Introduction of Other Therapeutic Substance into Peripheral Vein, Percutaneous Approach (ICD-10-PCS; principal; 2018-09-28)
PROC: 3E033NZ Introduction of Analgesics, Hypnotics, Sedatives into Peripheral Vein, Percutaneous Approach (ICD-10-PCS; 2018-09-28)
PROC: 3E0333Z Introduction of Anti-inflammatory into Peripheral Vein, Percutaneous Approach (ICD-10-PCS; 2018-09-28)
DX: R10.30 Lower abdominal pain, unspecified (principal); G25.81 Restless legs syndrome; F41.8 Other specified anxiety disorders; F32.9 Major depressive disorder, single episode, unspecified
CPT/HCPCS: 36415; 74177-TC; 80053; 83690; 85025; 87804; 99283-25; J0131; J7030

== ENCOUNTER 2019-01-22 13:32 | Emergency (ER) | payer OTHER ==
--- NOTE | 2019-01-22 13:51 | PDOC ---
Rapid Medical Evaluation Time Seen by Provider: 01/22/19 13:49 Medical Evaluation: Allergies Allergy/AdvReac Type Severity Reaction Status Date / Time No Known Allergies Allergy Verified 09/27/18 20:40 01/22/19 13:49 I have performed a brief in-person evaluation of this patient. The patient presents with a chief complaint of: mid-RUQ abd pain x 4 days, " felt like hunger pain and has gotten worse", denies fever/NV, +diarrhea "all night last night", denies hx cholecystecomy Pertinent physical exam findings: tenderness to epigastrum/RUQ I have ordered the following: labs, IV, urine The patient will proceed to the ED for further evaluation.
[2019-01-22 13:52] VITALS: BP 125/66; PULSE 89; TEMP 99; BMI 26.4
[2019-01-22] MEDS ORDERED: SODIUM CHLORIDE 1,000 ML IV STA (13:54)
[2019-01-22] MEDS ORDERED: PANTOPRAZOLE SODIUM 40 MG in SODIUM CHLORIDE 100 ML IVPB ONE (13:54)
[2019-01-22] MEDS ORDERED: KETOROLAC TROMETHAMINE 30 MG/1 ML VIAL IVPUSH ONE (13:54)
[2019-01-22] MEDS ORDERED: ONDANSETRON 4 MG/2 ML VIAL IVPUSH ONE (13:54)
[2019-01-22] MEDS ORDERED: PANTOPRAZOLE SODIUM 40 MG/100 ML BAG IVPB ONE (14:41)
[2019-01-22] MEDS ORDERED: KETOROLAC TROMETHAMINE 30 MG/1 ML VIAL ONE (14:42)
[2019-01-22] MEDS ORDERED: ONDANSETRON 4 MG/2 ML VIAL ONE (14:42)
[2019-01-22 15:24] LABS: BASO % 0.3 % (0-2.0); EOS % 1.8 % (0-4.5); HEMATOCRIT 36.7 % (32.4-45.2); HEMOGLOBIN 12.4 GM/dL (10.7-15.3); LYMPH % 32.1 % (8-40); MCH 28.4 pg (25.7-33.7); MCHC 33.8 g/dl (32.0-36.0); MEAN CELL VOLUME 84.2 fl (80-96); MEAN PLT VOLUME 7.5 fl (7.5-11.1); MONO % 9.2 % (3.8-10.2); NEUT % 56.6 % (42.8-82.8); PLATELET COUNT 282 K/MM3 (134-434); RBC 4.36 M/mm3 (3.60-5.2); RDW 13.6 % (11.6-15.6); WHITE BLOOD COUNT 6.8 K/mm3 (4.0-10.0)
--- NOTE | 2019-01-22 15:39 | PDOC ---
History of Present Illness - General History Source: Patient Exam Limitations: No Limitations - History of Present Illness Travel History: No Initial Comments: 01/22/19 14:06 48 y/o female presents to the ED with complaints of epigastric pain associate nausea vomiting and diarrhea since yesterday. Patient denies fever, chills, weakness but states unable to tolerate anything by mouth secondary to the pain. Patient with history of anxiety and denies current alcohol abuse Timing/Duration: reports: constant Quality: reports: moderate, burning, cramping Abdominal Pain Onset Location: reports: epigastric Pain Radiation: reports: RUQ Activities at Onset: reports: none Aggravating Factors: improves with: None Alleviating Factors: improves with: None <Yenifer Neil - Last Filed: 01/22/19 17:28> <Alida Cota - Last Filed: 01/22/19 17:35> - General Chief Complaint: Pain Stated Complaint: SEVERE ABD PAIN Time Seen by Provider: 01/22/19 13:49 Past History - Travel Traveled outside of the country in the last 30 days: No Close contact w/someone who was outside of country & ill: No - Past Medical History Cancer: No Cardiac Disorders: No CVA: No COPD: No DVT: No Psychiatric Problems: Yes (anxiety) - Surgical History Abdominal Surgery: (hernia, fibroid removed from r breast) - Immunization History Immunization Up to Date: Yes - Suicide/Smoking/Psychosocial Hx Smoking Status: No Smoking History: Former smoker Have you smoked in the past 12 months: No Number of Cigarettes Smoked Daily: 3 If you are a former smoker, when did you quit?: 2013 Information on smoking cessation initiated: No Hx Alcohol Use: No Drug/Substance Use Hx: No Substance Use Type: None Hx Substance Use Treatment: No Patient Lives Alone: No Lives with/in: spouse/SO <Yenifer Neil - Last Filed: 01/22/19 17:28> <Alida Cota - Last Filed: 01/22/19 17:35> - Past Medical History Allergies/Adverse Reactions: Allergies Allergy/AdvReac Type Severity Reaction Status Date / Time No Known Allergies Allergy Verified 01/22/19 13:50 Home Medications: Ambulatory Orders Fluoxetine HCl [Prozac] 10 mg PO DAILY 03/27/17 Nadolol [Corgard -] 20 mg PO DAILY 03/27/17 Pramipexole Di-HCl [Mirapex] 0.5 mg PO BID PRN 09/27/18 Pramipexole Di-HCl [Mirapex] 1 mg PO HS PRN 09/27/18 Acetaminophen [Tylenol] 650 mg PO QID PRN 09/28/18 Ondansetron HCl [Zofran] 4 mg PO TID PRN #12 tablet 01/22/19 Pantoprazole Sodium [Protonix] 40 mg PO DAILY #7 tablet. 01/22/19 Review of Systems - Review of Systems Able to Perform ROS?: Yes Constitutional: Yes: Loss of Appetite HEENTM: No: Symptoms Reported Respiratory: No: Symptoms reported Cardiac (ROS): No: Symptoms Reported ABD/GI: Yes: Diarrhea, Nausea, Poor Appetite, Poor Fluid Intake, Vomiting, Indigestion, Abdominal cramping : No: Symptoms Reported Musculoskeletal: No: Symptoms Reported Integumentary: No: Symptoms Reported Neurological: No: Symptoms reported Endocrine: No: Symptoms Reported Hematologic/Lymphatic: No: Symptoms Reported <Yenifer Neil - Last Filed: 01/22/19 17:28> *Physical Exam - Vital Signs Last Vital Signs Temp Pulse Resp BP Pulse Ox 99 F 89 18 125/66 97 01/22/19 13:50 01/22/19 13:50 01/22/19 13:50 01/22/19 13:50 01/22/19 13:50 - Physical Exam General Appearance: Yes: Nourished, Appropriately Dressed. No: Apparent Distress HEENT: positive: EOMI, HIRA, TMs Normal, Pharynx Normal (dry). negative: Pale Conjunctivae Respiratory/Chest: positive: Lungs Clear, Normal Breath Sounds. negative: Respiratory Distress, Accessory Muscle Use Cardiovascular: positive: Regular Rhythm, Regular Rate. negative: Murmur Gastrointestinal/Abdominal: positive: Soft, Tenderness (epigastric and ruq. - murphys) Musculoskeletal: negative: CVA Tenderness Extremity: positive: Normal Inspection Integumentary: positive: Normal Color, Warm, Moist Neurologic: positive: Motor Strength 5/5 (ambulatory) <Yenifer Neil - Last Filed: 01/22/19 17:28> - Vital Signs Last Vital Signs Temp Pulse Resp BP Pulse Ox 99 F 89 18 125/66 97 01/22/19 13:50 01/22/19 13:50 01/22/19 13:50 01/22/19 13:50 01/22/19 13:50 <Alida Cota - Last Filed: 01/22/19 17:35> ED Treatment Course - LABORATORY CBC & Chemistry Diagram: 01/22/19 15:10 01/22/19 15:10 <JolynnYenifer mitchell - Last Filed: 01/22/19 17:28> - LABORATORY CBC & Chemistry Diagram: 01/22/19 15:10 01/22/19 15:10 - ADDITIONAL ORDERS Additional order review: Laboratory Results 01/22/19 01/22/19 01/22/19 16:36 15:10 15:10 PT with INR INR Sodium 136 Potassium 3.7 Chloride 105 Carbon Dioxide 25 Anion Gap 7 L BUN 12 Creatinine 0.8 Est GFR (CKD-EPI)AfAm 100.33 Est GFR (CKD-EPI)NonAf 86.57 Random Glucose 83 Calcium 8.7 Total Bilirubin 0.4 AST 15 ALT 17 Alkaline Phosphatase 60 Total Protein 7.1 Albumin 3.6 Lipase 126 Urine Color Yellow Urine Appearance Clear Urine pH 5.5 Ur Specific [place] 1.014 Urine Protein Negative Urine Glucose (UA) Negative Urine Ketones Trace H Urine Blood Negative Urine Nitrite Negative Urine Bilirubin Negative Urine Urobilinogen 0.2 Ur Leukocyte Esterase Negative 01/22/19 15:10 PT with INR 11.90 INR 1.01 Sodium Potassium Chloride Carbon Dioxide Anion Gap BUN Creatinine Est GFR (CKD-EPI)AfAm Est GFR (CKD-EPI)NonAf Random Glucose Calcium Total Bilirubin AST ALT Alkaline Phosphatase Total Protein Albumin Lipase Urine Color Urine Appearance Urine pH Ur Specific [place] Urine Protein Urine Glucose (UA) Urine Ketones Urine Blood Urine Nitrite Urine Bilirubin Urine Urobilinogen Ur Leukocyte Esterase 01/22/19 15:10 RBC 4.36 MCV 84.2 MCHC 33.8 RDW 13.6 MPV 7.5 Neutrophils % 56.6 D Lymphocytes % 32.1 D Monocytes % 9.2 Eosinophils % 1.8 D Basophils % 0.3 - Medications Given in the ED: ED Medications Discontinued Medications Generic Name Dose Route Start Last Admin Trade Name Freq PRN Reason Stop Dose Admin Pantoprazole Sodium 40 mg/ 100 mls @ 200 mls/hr 01/22/19 13:54 01/22/19 15:11 Sodium Chloride IVPB 01/22/19 14:23 200 mls/hr ONCE ONE Administration Sodium Chloride 1,000 mls @ 1,000 mls/hr 01/22/19 13:54 01/22/19 15:11 Normal Saline - IV 01/22/19 14:53 1,000 mls/hr ASDIR STA Administration Ketorolac Tromethamine 30 mg 01/22/19 13:54 01/22/19 15:11 Toradol Injection - IVPUSH 01/22/19 13:55 30 mg ONCE ONE Administration Ondansetron HCl 4 mg 01/22/19 13:54 01/22/19 15:11 Zofran Injection IVPUSH 01/22/19 13:55 4 mg ONCE ONE Administration <Alida Cota - Last Filed: 01/22/19 17:35> Medical Decision Making - Medical Decision Making 01/22/19 15:05 Chief complaint: 48-year-old female with history of anxiety and alcohol abuse presents ED with epigastric right upper quadrant pain associated nausea vomiting and diarrhea since yesterday. exam. Patient tender to epigastric and right upper quadrant. Vital signs stable patient appears anxious. Plan. Labs, fluids, antiemetics, Toradol, protonix, urine, and abd u/s 01/22/19 15:46 Laboratory Tests 03/27/17 01/22/19 01/22/19 14:40 15:10 15:10 WBC 6.8 Hgb 12.4 Hct 36.7 Absolute Neuts (auto) 3.9 Lipase 126 Urine HCG, Qual Negative 01/22/19 17:17 Ultrasound shows no sonographic evidence of cholelithiasis or acute cholecystitis. There is noted definitive biliary tract dilatation. 01/22/19 17:28 Laboratory Tests 01/22/19 01/22/19 16:36 16:48 Urine Ketones Trace H Urine Blood Negative Urine Nitrite Negative Urine Bilirubin Negative Ur Leukocyte Esterase Negative Urine HCG, Qual Pending Discharge home with protonix and Zofran. Patient also given supportive care construction's in regards to diet and f/u <Yenifer Neil - Last Filed: 01/22/19 17:28> - Medical Decision Making The patient was seen and evaluated in conjunction with midlevel provider under my direct supervision, ancillary studies were reviewed. 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 HPI, workup/dispo as outlined. VS reviewed, wnl. 01/22/19 17:35 <Alida Cota - Last Filed: 01/22/19 17:35> *DC/Admit/Observation/Transfer <JolynnYenifer mitchell - Last Filed: 01/22/19 17:28> <Alida Cota - Last Filed: 01/22/19 17:35> Diagnosis at time of Disposition: Abdominal pain, Diarrhea - Discharge Dispostion Disposition: HOME Condition at time of disposition: Improved - Prescriptions Prescriptions: Ondansetron HCl [Zofran] 4 mg PO TID PRN #12 tablet PRN Reason: Nausea And/Or Vomiting Pantoprazole Sodium [Protonix] 40 mg PO DAILY #7 tablet.dr - Patient Instructions Printed Discharge Instructions: DI for Diarrhea and Traveler's Diarrhea -- Adult, DI for Nausea -- Adult Additional Instructions: Recommend following a bland diet for the next 48 hours and advance as tolerated. Please take Zofran as needed for nausea and take protonix to alleviate acid in the stomach - Post Discharge Activity Forms/Work/School Notes: Back to Work
[2019-01-22 15:48] LABS: ALBUMIN 3.6 g/dl (3.4-5.0); BILIRUBIN,TOTAL 0.4 mg/dL (0.2-1); CALCIUM 8.7 mg/dL (8.5-10.1); CREATININE 0.8 mg/dL (0.55-1.3); POTASSIUM 3.7 mmol/L (3.5-5.1); TOT PROT 7.1 g/dl (6.4-8.2)
[2019-01-22 15:51] LABS: INR 1.01 (0.83-1.09); PROTHROMBIN TIME (PATIENT) 11.9 SEC (9.7-13.0)
[2019-01-22 17:22] LABS: PH,URINE 5.5 (5.0-8.0); URINE APPEARANCE CLEAR; URINE BILIRUBIN NEGATIVE (NEGATIVE); URINE COLOR YELLOW; URINE GLUCOSE (UA) NEGATIVE (NEGATIVE); URINE KETONE TRACE (NEGATIVE); URINE LEUK ESTERASE NEGATIVE (NEGATIVE); URINE NITRITE NEGATIVE (NEGATIVE); URINE PROTEIN NEGATIVE (NEGATIVE); URINE UROBILINOGEN 0.2 mg/dL (0.2-1.0)
== END 2019-01-22 17:37 | disposition home or self-care (01) ==
LOC: JER 13:32
PROC: 3E0333Z Introduction of Anti-inflammatory into Peripheral Vein, Percutaneous Approach (ICD-10-PCS; principal; 2019-01-22)
PROC: 3E033GC Introduction of Other Therapeutic Substance into Peripheral Vein, Percutaneous Approach (ICD-10-PCS; 2019-01-22)
PROC: 3E0337Z Introduction of Electrolytic and Water Balance Substance into Peripheral Vein, Percutaneous Approach (ICD-10-PCS; 2019-01-22)
DX: R19.7 Diarrhea, unspecified (principal); R10.9 Unspecified abdominal pain
CPT/HCPCS: 36415; 76705-TC; 80053; 81003; 83690; 84703; 85025; 85610; 99282-25; J7030

== ENCOUNTER 2019-08-03 16:57 | Emergency (ER) | payer OTHER ==
[2019-08-03 17:40] VITALS: TEMP 98.3; BMI 24.9
--- NOTE | 2019-08-03 17:42 | PDOC ---
Rapid Medical Evaluation Time Seen by Provider: 08/03/19 17:35 Medical Evaluation: Allergies Allergy/AdvReac Type Severity Reaction Status Date / Time No Known Allergies Allergy Verified 01/22/19 13:50 Vital Signs Temp Pulse Resp BP Pulse Ox 98.3 F 89 18 131/74 98 08/03/19 17:37 08/03/19 17:37 08/03/19 17:37 08/03/19 17:37 08/03/19 17:37 08/03/19 17:41 Pt c/o: lower abd cramping with loose mucusy stool x 3-4 days, no gi hx Pt on brief exam: vss, mild llq pain Pt ordered for: labs and urine Pt to proceed to the ED Discharge Disposition - Diagnosis Proctitis Abdominal pain Qualifiers: Abdominal location: lower abdomen, unspecified Qualified Code(s): R10.30 - Lower abdominal pain, unspecified - Discharge Dispostion Disposition: HOME Condition at time of disposition: Stable - Prescriptions Prescriptions: Docusate Sodium [Colace] 100 mg PO BID #60 capsule Hydrocortisone Acetate [Anusol Hc Suppository -] 25 mg RC DAILY #14 supp.rect - Referrals Referrals: Marcos Lainez MD [Staff Physician] - Nik Shane MD, MD [Primary Care Provider] - - Patient Instructions Printed Discharge Instructions: Constipation Additional Instructions: drink plenty of fluids start a high fiber diet. use anusol as prescribed. take colace twice daily - Post Discharge Activity Work/School Note: Back to Work
[2019-08-03 18:45] LABS: BASO % 0.6 % (0-2.0); EOS % 2.8 % (0-4.5); HEMATOCRIT 37.2 % (32.4-45.2); HEMOGLOBIN 12.7 GM/dL (10.7-15.3); LYMPH % 31.8 % (8-40); MCH 28.7 pg (25.7-33.7); MEAN CELL VOLUME 84.2 fl (80-96); MEAN PLT VOLUME 7.8 fl (7.5-11.1); MONO % 8.6 % (3.8-10.2); NEUT % 56.2 % (42.8-82.8); PLATELET COUNT 291 K/MM3 (134-434); RBC 4.42 M/mm3 (3.60-5.2); RDW 13.1 % (11.6-15.6); WHITE BLOOD COUNT 7.1 K/mm3 (4.0-10.0)
[2019-08-03 18:48] LABS: URINE APPEARANCE CLEAR; URINE BILIRUBIN NEGATIVE (NEGATIVE); URINE COLOR YELLOW; URINE GLUCOSE (UA) NEGATIVE (NEGATIVE); URINE KETONE NEGATIVE (NEGATIVE); URINE LEUK ESTERASE NEGATIVE (NEGATIVE); URINE NITRITE NEGATIVE (NEGATIVE); URINE PROTEIN NEGATIVE (NEGATIVE); URINE UROBILINOGEN 0.2 mg/dL (0.2-1.0)
[2019-08-03 19:04] LABS: BILIRUBIN,TOTAL 0.2 mg/dL (0.2-1); CALCIUM 9.5 mg/dL (8.5-10.1); CREATININE 1.1 mg/dL (0.55-1.3); POTASSIUM 3.8 mmol/L (3.5-5.1); TOT PROT 7.6 g/dl (6.4-8.2)
--- NOTE | 2019-08-03 19:33 | PDOC ---
History of Present Illness - General Chief Complaint: Pain Stated Complaint: ABD PAIN/FEVER Time Seen by Provider: 08/03/19 17:35 - History of Present Illness Initial Comments: 08/03/19 19:46 48 YEAR OLD female with lower abdominal pain, diarrhea (mucousy, bloody), + chills, denies fever + nausea, denies vomiting. denies urinary symptoms PMhx: constipation prozac and adderall 08/03/19 19:48 08/03/19 23:22 Past History - Past Medical History Allergies/Adverse Reactions: Allergies Allergy/AdvReac Type Severity Reaction Status Date / Time No Known Allergies Allergy Verified 01/22/19 13:50 Home Medications: Ambulatory Orders Fluoxetine HCl [Prozac] 10 mg PO DAILY 03/27/17 Nadolol [Corgard -] 20 mg PO DAILY 03/27/17 Docusate Sodium [Colace] 100 mg PO BID #60 capsule 08/03/19 Hydrocortisone Acetate [Anusol Hc Suppository -] 25 mg RC DAILY #14 supp.rect Cancer: No Cardiac Disorders: No CVA: No COPD: No DVT: No GI Disorders: Yes (hemorrihoids) Psychiatric Problems: Yes (anxiety) - Surgical History Abdominal Surgery: (hernia, fibroid removed from r breast) - Immunization History Immunization Up to Date: Yes - Psycho Social/Smoking Cessation Hx Smoking Status: No Smoking History: Unknown if ever smoked Have you smoked in the past 12 months: No Number of Cigarettes Smoked Daily: 3 If you are a former smoker, when did you quit?: 2013 Hx Alcohol Use: No Drug/Substance Use Hx: No Substance Use Type: None Hx Substance Use Treatment: No Review of Systems - Review of Systems Able to Perform ROS?: Yes Is the patient limited Cuban proficient: No ABD/GI: Yes: Diarrhea, Nausea, Abdominal cramping *Physical Exam - Vital Signs Last Vital Signs Temp Pulse Resp BP Pulse Ox 98.3 F 89 18 131/74 98 08/03/19 17:37 08/03/19 17:37 08/03/19 17:37 08/03/19 17:37 08/03/19 17:37 - Physical Exam General Appearance: Yes: Appropriately Dressed Respiratory/Chest: positive: Lungs Clear, Normal Breath Sounds Gastrointestinal/Abdominal: positive: Normal Bowel Sounds, Tender (RLQ, LLQ), Soft Rectal Exam: positive: heme negative stool, hemorrhoids (multiple external hemorrhoids), other (no hard stool in the rectal area) Musculoskeletal: positive: Normal Inspection. negative: CVA Tenderness Extremity: positive: Normal Capillary Refill, Normal Inspection, Normal Range of Motion Integumentary: positive: Normal Color, Dry, Warm ED Treatment Course - LABORATORY CBC & Chemistry Diagram: 08/03/19 17:25 08/03/19 17:42 - ADDITIONAL ORDERS Additional order review: Laboratory Results 08/03/19 08/03/19 17:58 17:42 Sodium 140 Potassium 3.8 Chloride 104 Carbon Dioxide 30 Anion Gap 6 L BUN 16.0 Creatinine 1.1 Est GFR (CKD-EPI)AfAm 68.27 Est GFR (CKD-EPI)NonAf 58.91 Random Glucose 72 L Calcium 9.5 Total Bilirubin 0.2 AST 16 ALT 19 Alkaline Phosphatase 76 Total Protein 7.6 Albumin 4.0 Urine Color Yellow Urine Appearance Clear Urine pH 6.0 Ur Specific [place] 1.021 Urine Protein Negative Urine Glucose (UA) Negative Urine Ketones Negative Urine Blood Negative Urine Nitrite Negative Urine Bilirubin Negative Urine Urobilinogen 0.2 Ur Leukocyte Esterase Negative 08/03/19 17:25 RBC 4.42 MCV 84.2 MCHC 34.0 RDW 13.1 MPV 7.8 Neutrophils % 56.2 Lymphocytes % 31.8 Monocytes % 8.6 Eosinophils % 2.8 Basophils % 0.6 ED Progress Note - Progress Note Progress Note: 08/04/19 02:41 A: proctitis; abdominal pain P: labs TVUS CTAP: + proctitis. incidental findgings discussed with patient Discharge - Discharge Information Problems reviewed: Yes Clinical Impression/Diagnosis: Proctitis Abdominal pain Qualifiers: Abdominal location: lower abdomen, unspecified Qualified Code(s): R10.30 - Lower abdominal pain, unspecified Condition: Stable Disposition: HOME - Additional Discharge Information Prescriptions: Docusate Sodium [Colace] 100 mg PO BID #60 capsule Hydrocortisone Acetate [Anusol Hc Suppository -] 25 mg RC DAILY #14 supp.rect - Follow up/Referral Referrals: Nik Shane MD, MD [Primary Care Provider] - Marcos Lainez MD [Staff Physician] - - Patient Discharge Instructions Patient Printed Discharge Instructions: Constipation Additional Instructions: drink plenty of fluids start a high fiber diet. use anusol as prescribed. take colace twice daily - Post Discharge Activity Work/Back to School Note: Back to Work
[2019-08-03] MEDS ORDERED: ONDANSETRON 4 MG/2 ML VIAL IVPUSH ONE (19:53)
[2019-08-03] MEDS ORDERED: SODIUM CHLORIDE 1,000 ML IV STA (19:53)
--- NOTE | 2019-08-03 20:10 | PDOC ---
*Physical Exam - Vital Signs Last Vital Signs Temp Pulse Resp BP Pulse Ox 98.3 F 89 18 131/74 98 08/03/19 17:37 08/03/19 17:37 08/03/19 17:37 08/03/19 17:37 08/03/19 17:37 ED Treatment Course - LABORATORY CBC & Chemistry Diagram: 08/03/19 17:25 08/03/19 17:42 - ADDITIONAL ORDERS Additional order review: Laboratory Results 08/03/19 08/03/19 17:58 17:42 Sodium 140 Potassium 3.8 Chloride 104 Carbon Dioxide 30 Anion Gap 6 L BUN 16.0 Creatinine 1.1 Est GFR (CKD-EPI)AfAm 68.27 Est GFR (CKD-EPI)NonAf 58.91 Random Glucose 72 L Calcium 9.5 Total Bilirubin 0.2 AST 16 ALT 19 Alkaline Phosphatase 76 Total Protein 7.6 Albumin 4.0 Urine Color Yellow Urine Appearance Clear Urine pH 6.0 Ur Specific [place] 1.021 Urine Protein Negative Urine Glucose (UA) Negative Urine Ketones Negative Urine Blood Negative Urine Nitrite Negative Urine Bilirubin Negative Urine Urobilinogen 0.2 Ur Leukocyte Esterase Negative 08/03/19 17:25 RBC 4.42 MCV 84.2 MCHC 34.0 RDW 13.1 MPV 7.8 Neutrophils % 56.2 Lymphocytes % 31.8 Monocytes % 8.6 Eosinophils % 2.8 Basophils % 0.6 Medical Decision Making - Medical Decision Making 08/03/19 20:09 Patient seen by the advanced practice provider under my direct supervision. Ancillary testing reviewed as necessary. I agree with plan as outlined by the advanced practice provider. Discharge - Discharge Information Problems reviewed: Yes Clinical Impression/Diagnosis: Abdominal pain Qualifiers: Abdominal location: lower abdomen, unspecified Qualified Code(s): R10.30 - Lower abdominal pain, unspecified - Follow up/Referral Referrals: Nik Shane MD, MD [Primary Care Provider] - - Patient Discharge Instructions - Post Discharge Activity
[2019-08-03] MEDS ORDERED: ONDANSETRON 4 MG/2 ML VIAL ONE (20:14)
[2019-08-03 23:57] VITALS: BP 128/75; PULSE 76
== END 2019-08-03 23:45 | disposition home or self-care (01) ==
LOC: JER 16:57
PROC: 3E033GC Introduction of Other Therapeutic Substance into Peripheral Vein, Percutaneous Approach (ICD-10-PCS; principal; 2019-08-03)
DX: R10.30 Lower abdominal pain, unspecified (principal); K62.89 Other specified diseases of anus and rectum; K64.9 Unspecified hemorrhoids; Z87.891 Personal history of nicotine dependence; F41.9 Anxiety disorder, unspecified; K46.9 Unspecified abdominal hernia without obstruction or gangrene
CPT/HCPCS: 36415; 74177-TC; 76830-TC; 80053; 81003; 82272; 84703; 85025; 87086; 99282-25; J7030; Q9967

== ENCOUNTER 2020-08-13 15:37 | Emergency (ER) | payer OTHER ==
[2020-08-13 15:56] VITALS: BP 125/81; PULSE 81; BMI 26.4
== END 2020-08-13 19:06 | disposition home or self-care (01) ==
LOC: JER 15:37 → JERFT 15:37
DX: M79.604 Pain in right leg (principal); M71.21 Synovial cyst of popliteal space [Baker], right knee
CPT/HCPCS: 93971-TC; 99284-25

== ENCOUNTER 2020-10-20 08:24 | Emergency (ER) | payer OTHER, BC ==
[2020-10-20 08:41] VITALS: TEMP 98.2; BMI 25.3
[2020-10-20] MEDS ORDERED: SODIUM CHLORIDE 0.9% 500 ML INFUS.BAG IV ONE (09:20)
[2020-10-20 09:39] LABS: BASO % 0.5 % (0-2.0); EOS % 1.8 % (0-4.5); HEMATOCRIT 34.5 % (32.4-45.2); HEMOGLOBIN 12.1 GM/dL (10.7-15.3); MCH 29.2 pg (25.7-33.7); MEAN CELL VOLUME 83.4 fl (80-96); MEAN PLT VOLUME 7.2 fl (7.5-11.1); NEUT % 60.7 % (42.8-82.8); PLATELET COUNT 300 K/MM3 (134-434); RBC 4.13 M/mm3 (3.60-5.2); RDW 13.3 % (11.6-15.6); WHITE BLOOD COUNT 5.9 K/mm3 (4.0-10.0)
[2020-10-20 09:45] LABS: INR 0.97 (0.83-1.09); PROTHROMBIN TIME (PATIENT) 11.8 SEC (9.7-13.0)
[2020-10-20 09:48] LABS: ACTIVATED PTT 31.8 SECONDS (25.2-36.5)
[2020-10-20 10:08] LABS: POTASSIUM 4.3 mmol/L (3.5-5.1)
[2020-10-20 10:09] LABS: CALCIUM 8.9 mg/dL (8.5-10.1)
[2020-10-20 10:10] LABS: ALBUMIN 3.5 g/dl (3.4-5.0); BLOOD UREA NITROGEN 12.6 mg/dL (7-18)
[2020-10-20 10:13] LABS: CREATININE 0.7 mg/dL (0.55-1.3)
[2020-10-20 10:15] LABS: BILIRUBIN,TOTAL 0.4 mg/dL (0.2-1); TOT PROT 7.1 g/dl (6.4-8.2)
[2020-10-20 10:24] LABS: URINE APPEARANCE CLEAR; URINE BILIRUBIN NEGATIVE (NEGATIVE); URINE COLOR YELLOW; URINE GLUCOSE (UA) NEGATIVE (NEGATIVE); URINE KETONE NEGATIVE (NEGATIVE); URINE LEUK ESTERASE NEGATIVE (NEGATIVE); URINE NITRITE NEGATIVE (NEGATIVE); URINE PROTEIN NEGATIVE (NEGATIVE)
[2020-10-20 12:26] VITALS: BP 116/72; PULSE 79
== END 2020-10-20 11:50 | disposition home or self-care (01) ==
LOC: JER 08:24
DX: R25.2 Cramp and spasm (principal)
CPT/HCPCS: 36415; 74177-TC; 80053; 81003; 82272; 85025; 85610; 85730; 87086; 99285-25; Q9967

== ENCOUNTER 2021-10-12 11:53 | Emergency (ER) | payer BC, OTHER ==
[2021-10-12 12:16] VITALS: BP 129/85; PULSE 114; TEMP 97.9; BMI 25.3
== END 2021-10-12 14:09 | disposition home or self-care (01) ==
LOC: JERFT 11:53
DX: L03.116 Cellulitis of left lower limb (principal); M79.672 Pain in left foot
CPT/HCPCS: 73630-TC-LT; 99284-25

== ENCOUNTER 2021-12-13 10:53 | Emergency (ER) | payer OTHER ==
[2021-12-13 10:58] VITALS: TEMP 98.2; BMI 26.0
[2021-12-13 12:51] LABS: BASO % 0.7 % (0-2.0); EOS % 1.8 % (0-4.5); HEMATOCRIT 36.2 % (32.4-45.2); HEMOGLOBIN 12.3 GM/dL (10.7-15.3); MEAN CELL VOLUME 82.2 fl (80-96); MEAN PLT VOLUME 6.8 fl (7.5-11.1); MONO % 7.3 % (3.8-10.2); NEUT % 54.2 % (42.8-82.8); PLATELET COUNT 321 10^3/uL (134-434); RDW 12.8 % (11.6-15.6); WHITE BLOOD COUNT 5.4 K/mm3 (4.0-10.0)
[2021-12-13 13:02] LABS: INR 1.01 (0.83-1.09); PROTHROMBIN TIME (PATIENT) 11.6 SEC (9.7-13.0)
[2021-12-13 13:04] LABS: ACTIVATED PTT 33.2 SECONDS (25.2-36.5)
[2021-12-13 13:16] LABS: URINE APPEARANCE CLEAR; URINE BILIRUBIN NEGATIVE (NEGATIVE); URINE COLOR YELLOW; URINE GLUCOSE (UA) NEGATIVE (NEGATIVE); URINE KETONE NEGATIVE (NEGATIVE); URINE LEUK ESTERASE NEGATIVE (NEGATIVE); URINE NITRITE NEGATIVE (NEGATIVE); URINE PROTEIN NEGATIVE (NEGATIVE); URINE UROBILINOGEN 0.2 mg/dL (0.2-1.0)
[2021-12-13 13:19] LABS: CALCIUM 9.6 mg/dL (8.5-10.1)
[2021-12-13 13:20] LABS: ALBUMIN 3.7 g/dl (3.4-5.0)
[2021-12-13 13:22] LABS: CREATININE 0.8 mg/dL (0.55-1.3)
[2021-12-13 13:24] LABS: BILIRUBIN,TOTAL 0.4 mg/dL (0.2-1); TOT PROT 7.7 g/dl (6.4-8.2)
[2021-12-13] MEDS ORDERED: SODIUM CHLORIDE 1,000 ML IV STA (14:54)
[2021-12-13] MEDS ORDERED: ACETAMINOPHEN 1000 MG/100 ML BAG IVPB ONE (14:54)
[2021-12-13] MEDS ORDERED: ACETAMINOPHEN INJECTION 100 ML IVPB ONE (14:57)
[2021-12-13 17:31] VITALS: BP 129/86; PULSE 83
== END 2021-12-13 17:32 | disposition home or self-care (01) ==
LOC: JER 10:53
PROC: 3E0333Z Introduction of Anti-inflammatory into Peripheral Vein, Percutaneous Approach (ICD-10-PCS; principal; 2021-12-13)
PROC: 3E0337Z Introduction of Electrolytic and Water Balance Substance into Peripheral Vein, Percutaneous Approach (ICD-10-PCS; 2021-12-13)
DX: R10.9 Unspecified abdominal pain (principal); K62.5 Hemorrhage of anus and rectum
CPT/HCPCS: 36415; 74177-TC; 80053; 81003; 82272; 83690; 84703; 85025; 85610; 85730; 87086; 99285-25; Q9967

== ENCOUNTER 2022-10-21 10:32 | Emergency (ER) | payer OTHER ==
[2022-10-21 10:36] VITALS: BP 135/91; PULSE 117; RESP 18; TEMP 98.7; BMI 27.1
== END 2022-10-21 12:18 | disposition home or self-care (01) ==
LOC: JERFT 10:32
DX: R59.0 Localized enlarged lymph nodes (principal)
CPT/HCPCS: 76642-TC-RT; 99284-25

== ENCOUNTER 2023-05-23 04:09 | Day surgery (SDC) | payer OTHER ==
[2023-05-16 17:22] VITALS: BMI 26.5
[2023-05-23 11:00] VITALS: RESP 20
[2023-05-23] MEDS ORDERED: LIDOCAINE HCL 1%, 10 MG/ML (20ML VIAL) ONE ×2 (12:23→13:43)
[2023-05-23] MEDS ORDERED: BUPIVACAINE HCL/PF 0.5% (5MG/ML) 10 ML VIAL ONE (12:23)
[2023-05-23] MEDS ORDERED: MIDAZOLAM HCL 2 MG/2 ML SINGLE DOSE VIAL ONE ×3 (13:09→13:40)
[2023-05-23] MEDS ORDERED: ceFAZolin SODIUM 1 GM VIAL ONE (13:09)
[2023-05-23] MEDS ORDERED: ceFAZolin SODIUM 1 GM VIAL IVPB ONE (13:14)
[2023-05-23] MEDS ORDERED: LIDOCAINE HCL 1%, 10 MG/ML (20ML VIAL) INF ONE ×2 (13:17)
[2023-05-23] MEDS ORDERED: KETOROLAC TROMETHAMINE 30 MG/1 ML VIAL ONE (13:24)
[2023-05-23] MEDS ORDERED: BUPIVACAINE HCL/PF 0.5% (5MG/ML) 10 ML VIAL IJ ONE ×2 (13:35→14:40)
[2023-05-23 15:16] VITALS: TEMP 97.5
[2023-05-23] MEDS ORDERED: oxyCODONE HCL 5 MG TABLET PO ONE (15:30)
[2023-05-23] MEDS ORDERED: oxyCODONE HCL 5 MG TABLET ONE (15:32)
[2023-05-23 17:04] VITALS: BP 140/86; PULSE 98
== END 2023-05-23 16:25 | disposition home or self-care (01) ==
LOC: JASU-SURG 04:09
PROVIDERS: ATTEND Podiatrist Foot Surgery
PROC: 0QBN0ZZ Excision of Right Metatarsal, Open Approach (ICD-10-PCS; principal; 2023-05-23 13:00)
DX: M21.611 Bunion of right foot (principal); M20.11 Hallux valgus (acquired), right foot
CPT/HCPCS: 28298; C1713; 88305-TC; 88311-TC

== ENCOUNTER 2023-05-30 12:56 | Inpatient (IN) | payer OTHER ==
[2023-05-30] MEDS ORDERED: VANCOMYCIN 1 GM PREMIX - 1 GM/200 ML BAG IVPB ONE (14:37)
[2023-05-30] MEDS ORDERED: VANCOMYCIN 1 GRAM (PRE-DOCKED) 1,000 MG/250 ML BAG IVPB ONE (15:30)
[2023-05-30 15:53] LABS: BASO % 0.8 % (0-2.0); EOS % 2.3 % (0-4.5); HEMATOCRIT 33.6 % (32.4-45.2); HEMOGLOBIN 11.1 GM/dL (10.7-15.3); LYMPH % 30.4 % (8-40); MCH 27.4 pg (25.7-33.7); MCHC 32.9 g/dl (32.0-36.0); MEAN CELL VOLUME 83.1 fl (80-96); MEAN PLT VOLUME 6.9 fl (7.5-11.1); MONO % 7.2 % (3.8-10.2); NEUT % 59.3 % (42.8-82.8); PLATELET COUNT 342 10^3/uL (134-434); RBC 4.04 M/mm3 (3.60-5.2); WHITE BLOOD COUNT 6.6 K/mm3 (4.0-10.0)
[2023-05-30 16:12] LABS: CHLORIDE 107 mmol/L (98-107); POTASSIUM 4.1 mmol/L (3.5-5.1); SODIUM 140 mmol/L (136-145)
[2023-05-30 16:14] LABS: CALCIUM 8.7 mg/dL (8.5-10.1)
[2023-05-30 16:15] LABS: ALBUMIN 3.4 g/dl (3.4-5.0); ANION GAP 4 MMOL/L (8-16); BLOOD UREA NITROGEN 11.2 mg/dL (7-18); CO2 28 mmol/L (21-32); GLUCOSE,RANDOM 86 mg/dL (74-106)
[2023-05-30 16:18] LABS: CREATININE 0.8 mg/dL (0.55-1.3); SGOT/AST 19 U/L (15-37); SGPT/ALT 24 U/L (13-61)
[2023-05-30 16:19] LABS: TOT PROT 6.9 g/dl (6.4-8.2)
[2023-05-30 16:20] LABS: BILIRUBIN,TOTAL 0.2 mg/dL (0.2-1)
[2023-05-30 16:21] LABS: ALK PHOS 82 U/L (45-117)
[2023-05-30 16:33] LABS: ERYTHROCYTE SEDIMENTATION RATE 37 mm/hr (0-30)
[2023-05-30 17:50] VITALS: BMI 27.4
[2023-05-30] MEDS: ATORVASTATIN CA 20 MG TABLET (FP) PO SCH (21:22)
[2023-05-30] MEDS: ACETAMINOPHEN 325 MG TABLET (FP) PO PRN (23:35)
[2023-05-31] MEDS ORDERED: VANCOMYCIN 1,000 MG in DEXTROSE 5%-WATER - 250 ML IVPB SCH ×2 (01:00→04:00)
[2023-05-31] MEDS ORDERED: VANCOMYCIN/WATER FOR INJ (PEG) 1,000 MG/200 ML BAG IVPB SCH (04:00)
[2023-05-31 08:06] LABS: BASO % 0.7 % (0-2.0); EOS % 2.5 % (0-4.5); HEMATOCRIT 32.5 % (32.4-45.2); HEMOGLOBIN 10.8 GM/dL (10.7-15.3); LYMPH % 25.1 % (8-40); MCH 27.9 pg (25.7-33.7); MCHC 33.4 g/dl (32.0-36.0); MEAN CELL VOLUME 83.6 fl (80-96); MEAN PLT VOLUME 6.9 fl (7.5-11.1); MONO % 6.6 % (3.8-10.2); NEUT % 65.1 % (42.8-82.8); PLATELET COUNT 312 10^3/uL (134-434); RBC 3.88 M/mm3 (3.60-5.2); WHITE BLOOD COUNT 6.9 K/mm3 (4.0-10.0)
[2023-05-31 08:39] LABS: ALBUMIN 3.2 g/dl (3.4-5.0); BLOOD UREA NITROGEN 12.3 mg/dL (7-18); CALCIUM 8.5 mg/dL (8.5-10.1)
[2023-05-31 08:42] LABS: CREATININE 0.7 mg/dL (0.55-1.3); TOT PROT 6.4 g/dl (6.4-8.2)
[2023-05-31 08:45] LABS: BILIRUBIN,TOTAL 0.4 mg/dL (0.2-1)
[2023-05-31] MEDS: ENOXAPARIN NA (PORCINE) 40 MG/0.4 ML DISP.SYRIN SQ SCH (09:13)
[2023-05-31] MEDS: ACETAMINOPHEN 325 MG TABLET (FP) PO PRN (09:14)
[2023-05-31] MEDS: FLUoxetine HCL 20 MG CAPSULE PO SCH (09:14)
[2023-05-31] MEDS ORDERED: PATIENT'S OWN MEDICATION (NON-FORMULARY) (Linaclotide [Linzess] 290 MCG Capsule) PO SCH (10:00)
[2023-05-31] MEDS ORDERED: PIPERACILLIN/TAZOBACTAM 3.375 GM VIAL IVPB ONE (11:51)
[2023-05-31] MEDS: PIPERACILLIN/TAZOB 3.375 GM 3.375 GM in DEXTROSE 5%-WATER - 50 ML IVPB SCH ×2 (11:54→17:59)
[2023-05-31] MEDS: ATORVASTATIN CA 20 MG TABLET (FP) PO SCH (21:28)
[2023-06-01] MEDS: PIPERACILLIN/TAZOB 3.375 GM 3.375 GM in DEXTROSE 5%-WATER - 50 ML IVPB SCH ×3 (01:49→17:23)
[2023-06-01] MEDS: ACETAMINOPHEN 325 MG TABLET (FP) PO PRN (01:56)
[2023-06-01] MEDS: ENOXAPARIN NA (PORCINE) 40 MG/0.4 ML DISP.SYRIN SQ SCH (09:06)
[2023-06-01] MEDS: FLUoxetine HCL 20 MG CAPSULE PO SCH (09:06)
[2023-06-01 09:33] LABS: EOS % 3.3 % (0-4.5); HEMATOCRIT 31.9 % (32.4-45.2); HEMOGLOBIN 10.8 GM/dL (10.7-15.3); LYMPH % 34.1 % (8-40); MCH 28.1 pg (25.7-33.7); MCHC 33.7 g/dl (32.0-36.0); MEAN CELL VOLUME 83.4 fl (80-96); MEAN PLT VOLUME 7.1 fl (7.5-11.1); NEUT % 54.6 % (42.8-82.8); PLATELET COUNT 315 10^3/uL (134-434); RBC 3.83 M/mm3 (3.60-5.2); RDW 13.1 % (11.6-15.6); WHITE BLOOD COUNT 6.1 K/mm3 (4.0-10.0)
[2023-06-01 10:08] LABS: CALCIUM 8.6 mg/dL (8.5-10.1)
[2023-06-01 10:09] LABS: BLOOD UREA NITROGEN 11.9 mg/dL (7-18)
[2023-06-01 10:12] LABS: CREATININE 0.8 mg/dL (0.55-1.3)
[2023-06-01] MEDS: ATORVASTATIN CA 20 MG TABLET (FP) PO SCH (21:43)
[2023-06-02] MEDS: PIPERACILLIN/TAZOB 3.375 GM 3.375 GM in DEXTROSE 5%-WATER - 50 ML IVPB SCH ×3 (02:45→17:25)
[2023-06-02] MEDS: ACETAMINOPHEN 325 MG TABLET (FP) PO PRN ×2 (04:51→20:58)
[2023-06-02] MEDS: FLUoxetine HCL 20 MG CAPSULE PO SCH (09:30)
[2023-06-02] MEDS: ENOXAPARIN NA (PORCINE) 40 MG/0.4 ML DISP.SYRIN SQ SCH (09:30)
[2023-06-02 10:15] LABS: HEMOGLOBIN 11.4 GM/dL (10.7-15.3); MCH 28.5 pg (25.7-33.7); MCHC 34.6 g/dl (32.0-36.0); MEAN CELL VOLUME 82.3 fl (80-96); MEAN PLT VOLUME 7.2 fl (7.5-11.1); PLATELET COUNT 319 10^3/uL (134-434); RBC 4.01 M/mm3 (3.60-5.2); RDW 13.5 % (11.6-15.6); WHITE BLOOD COUNT 5.9 K/mm3 (4.0-10.0)
[2023-06-02 10:47] LABS: POTASSIUM 3.8 mmol/L (3.5-5.1)
[2023-06-02 11:03] LABS: ALBUMIN 3.4 g/dl (3.4-5.0); BLOOD UREA NITROGEN 12.6 mg/dL (7-18); CALCIUM 9.3 mg/dL (8.5-10.1); MAGNESIUM 2.3 mg/dL (1.8-2.4)
[2023-06-02 11:07] LABS: CREATININE 0.8 mg/dL (0.55-1.3); PHOSPHOROUS 4.4 mg/dL (2.5-4.9)
[2023-06-02 11:08] LABS: BILIRUBIN,TOTAL 0.4 mg/dL (0.2-1)
[2023-06-02 11:09] LABS: TOT PROT 6.8 g/dl (6.4-8.2)
[2023-06-02] MEDS: PANTOPRAZOLE 40 MG TABLET PO SCH (16:37)
[2023-06-02] MEDS: ATORVASTATIN CA 20 MG TABLET (FP) PO SCH (20:59)
[2023-06-03] MEDS: PIPERACILLIN/TAZOB 3.375 GM 3.375 GM in DEXTROSE 5%-WATER - 50 ML IVPB SCH ×3 (01:02→17:20)
[2023-06-03] MEDS: ENOXAPARIN NA (PORCINE) 40 MG/0.4 ML DISP.SYRIN SQ SCH (09:43)
[2023-06-03] MEDS: FLUoxetine HCL 20 MG CAPSULE PO SCH (09:44)
[2023-06-03] MEDS: PANTOPRAZOLE 40 MG TABLET PO SCH (09:45)
[2023-06-03 09:58] LABS: HEMOGLOBIN 11.4 GM/dL (10.7-15.3); MCH 28.3 pg (25.7-33.7); MCHC 33.6 g/dl (32.0-36.0); MEAN CELL VOLUME 84.2 fl (80-96); MEAN PLT VOLUME 7.2 fl (7.5-11.1); PLATELET COUNT 325 10^3/uL (134-434); RBC 4.04 M/mm3 (3.60-5.2); WHITE BLOOD COUNT 5.3 K/mm3 (4.0-10.0)
[2023-06-03 14:25] LABS: ALBUMIN 3.5 g/dl (3.4-5.0); BLOOD UREA NITROGEN 13.3 mg/dL (7-18); MAGNESIUM 2.2 mg/dL (1.8-2.4)
[2023-06-03 14:29] LABS: BILIRUBIN,TOTAL 0.3 mg/dL (0.2-1); CREATININE 0.8 mg/dL (0.55-1.3); PHOSPHOROUS 4.2 mg/dL (2.5-4.9)
[2023-06-03] MEDS: ACETAMINOPHEN 325 MG TABLET (FP) PO PRN (21:12)
[2023-06-03] MEDS: ATORVASTATIN CA 20 MG TABLET (FP) PO SCH (21:12)
[2023-06-04] MEDS: PIPERACILLIN/TAZOB 3.375 GM 3.375 GM in DEXTROSE 5%-WATER - 50 ML IVPB SCH ×2 (01:06→10:47)
[2023-06-04] MEDS: PANTOPRAZOLE 40 MG TABLET PO SCH (09:14)
[2023-06-04] MEDS: FLUoxetine HCL 20 MG CAPSULE PO SCH (09:14)
[2023-06-04 10:23] LABS: HEMATOCRIT 35.8 % (32.4-45.2); HEMOGLOBIN 11.7 GM/dL (10.7-15.3); MCH 27.6 pg (25.7-33.7); MCHC 32.7 g/dl (32.0-36.0); MEAN CELL VOLUME 84.4 fl (80-96); MEAN PLT VOLUME 7.1 fl (7.5-11.1); PLATELET COUNT 367 10^3/uL (134-434); RBC 4.24 M/mm3 (3.60-5.2); RDW 13.2 % (11.6-15.6); WHITE BLOOD COUNT 6.1 K/mm3 (4.0-10.0)
[2023-06-04 10:44] LABS: ALBUMIN 3.5 g/dl (3.4-5.0)
[2023-06-04 10:45] LABS: BLOOD UREA NITROGEN 12.8 mg/dL (7-18)
[2023-06-04 10:47] LABS: CALCIUM 9.3 mg/dL (8.5-10.1); CREATININE 0.9 mg/dL (0.55-1.3)
[2023-06-04 10:48] LABS: BILIRUBIN,TOTAL 0.3 mg/dL (0.2-1); TOT PROT 7.4 g/dl (6.4-8.2)
[2023-06-04] MEDS: ENOXAPARIN NA (PORCINE) 40 MG/0.4 ML DISP.SYRIN SQ SCH (10:51)
[2023-06-04] MEDS: ACETAMINOPHEN 325 MG TABLET (FP) PO PRN ×2 (15:36→21:00)
[2023-06-04] MEDS: AMOX TR/POT CLAV 875MG/125MG TABLETS (FP) PO SCH (16:46)
[2023-06-04] MEDS: ATORVASTATIN CA 20 MG TABLET (FP) PO SCH (21:00)
[2023-06-04 21:26] VITALS: RESP 20
[2023-06-05 04:55] VITALS: BP 122/83; PULSE 90; TEMP 98.5
[2023-06-05] MEDS: AMOX TR/POT CLAV 875MG/125MG TABLETS (FP) PO SCH (08:26)
[2023-06-05] MEDS: FLUoxetine HCL 20 MG CAPSULE PO SCH (09:15)
[2023-06-05] MEDS: PANTOPRAZOLE 40 MG TABLET PO SCH (09:15)
[2023-06-05] MEDS: ENOXAPARIN NA (PORCINE) 40 MG/0.4 ML DISP.SYRIN SQ SCH (09:16)
[2023-06-05 10:43] LABS: HEMATOCRIT 34.8 % (32.4-45.2); HEMOGLOBIN 12.1 GM/dL (10.7-15.3); MCH 28.5 pg (25.7-33.7); MCHC 34.9 g/dl (32.0-36.0); MEAN CELL VOLUME 81.8 fl (80-96); MEAN PLT VOLUME 7.2 fl (7.5-11.1); PLATELET COUNT 351 10^3/uL (134-434); RBC 4.25 M/mm3 (3.60-5.2); WHITE BLOOD COUNT 6.1 K/mm3 (4.0-10.0)
[2023-06-05 11:07] LABS: POTASSIUM 4.2 mmol/L (3.5-5.1)
[2023-06-05 11:12] LABS: ALBUMIN 3.6 g/dl (3.4-5.0); CALCIUM 9.8 mg/dL (8.5-10.1)
[2023-06-05 11:13] LABS: BLOOD UREA NITROGEN 12.6 mg/dL (7-18)
[2023-06-05 11:15] LABS: CREATININE 0.8 mg/dL (0.55-1.3)
[2023-06-05 11:18] LABS: BILIRUBIN,TOTAL 0.4 mg/dL (0.2-1); TOT PROT 7.4 g/dl (6.4-8.2)
== END 2023-06-05 13:20 | disposition home or self-care (01) | DRG 721 ==
LOC: JER 12:56 → JERBED 16:21 → J6S 17:10
PROVIDERS: ADMIT Internal Medicine; ATTEND Internal Medicine
DX: T85.79XA Infection and inflammatory reaction due to other internal prosthetic devices, implants and grafts, initial encounter (principal); F32.A Depression, unspecified; E78.5 Hyperlipidemia, unspecified; K58.9 Irritable bowel syndrome, unspecified; L03.031 Cellulitis of right toe; Y83.9 Surgical procedure, unspecified as the cause of abnormal reaction of the patient, or of later complication, without mention of misadventure at the time of the procedure
CPT/HCPCS: 36415; 73610-TC-RT-FY; 73630-TC-RT-FY; 80048; 80053; 83735; 84100; 85025; 85027; 85651; 86140; 87040; 93005; 93010; 99285-25; G0480

== ENCOUNTER 2023-06-22 12:45 | Emergency (ER) | payer OTHER ==
[2023-06-22 12:55] VITALS: BP 124/83; PULSE 102; RESP 18; TEMP 98.2; BMI 27.3
[2023-06-22] MEDS ORDERED: ACETAMINOPHEN 1000 MG/100 ML BAG IVPB ONE (13:29)
[2023-06-22] MEDS ORDERED: SODIUM CHLORIDE 0.9% 500 ML INFUS.BAG IV ONE (13:29)
[2023-06-22] MEDS ORDERED: ACETAMINOPHEN INJECTION 100 ML IVPB ONE (13:42)
[2023-06-22 14:08] LABS: BASO % 0.5 % (0-2.0); EOS % 1.5 % (0-4.5); HEMATOCRIT 34.4 % (32.4-45.2); HEMOGLOBIN 12.1 GM/dL (10.7-15.3); MCH 28.5 pg (25.7-33.7); MCHC 35.3 g/dl (32.0-36.0); MEAN CELL VOLUME 80.8 fl (80-96); MEAN PLT VOLUME 6.8 fl (7.5-11.1); MONO % 9.3 % (3.8-10.2); NEUT % 62.7 % (42.8-82.8); PLATELET COUNT 313 10^3/uL (134-434); RBC 4.26 M/mm3 (3.60-5.2)
[2023-06-22 14:09] LABS: PH,URINE 5.5 (5.0-8.0); URINE APPEARANCE CLEAR; URINE BILIRUBIN NEGATIVE (NEGATIVE); URINE COLOR YELLOW; URINE GLUCOSE (UA) NEGATIVE (NEGATIVE); URINE KETONE NEGATIVE (NEGATIVE); URINE LEUK ESTERASE NEGATIVE (NEGATIVE); URINE NITRITE NEGATIVE (NEGATIVE); URINE PROTEIN NEGATIVE (NEGATIVE); URINE UROBILINOGEN 0.2 mg/dL (0.2-1.0)
[2023-06-22 14:15] LABS: INR 1.09 (0.83-1.09); PROTHROMBIN TIME (PATIENT) 12.6 SEC (9.7-13.0)
[2023-06-22 14:18] LABS: ACTIVATED PTT 32.3 SECONDS (25.2-36.5)
[2023-06-22 14:31] LABS: POTASSIUM 4.1 mmol/L (3.5-5.1)
[2023-06-22 14:34] LABS: ALBUMIN 3.7 g/dl (3.4-5.0); BLOOD UREA NITROGEN 10.7 mg/dL (7-18); MAGNESIUM 1.8 mg/dL (1.8-2.4)
[2023-06-22 14:37] LABS: CREATININE 0.8 mg/dL (0.55-1.3); PHOSPHOROUS 3.5 mg/dL (2.5-4.9)
[2023-06-22 14:38] LABS: BILIRUBIN,TOTAL 0.3 mg/dL (0.2-1); TOT PROT 7.6 g/dl (6.4-8.2)
== END 2023-06-22 17:45 | disposition home or self-care (01) ==
LOC: JER 12:45
PROC: 3E033NZ Introduction of Analgesics, Hypnotics, Sedatives into Peripheral Vein, Percutaneous Approach (ICD-10-PCS; principal; 2023-06-22)
DX: R10.31 Right lower quadrant pain (principal); R10.32 Left lower quadrant pain; R50.9 Fever, unspecified; R19.7 Diarrhea, unspecified; R63.0 Anorexia; Z20.822 Contact with and (suspected) exposure to COVID-19
CPT/HCPCS: 0241U-QW; 36415; 74177-TC; 80053; 81003; 83690; 83735; 84100; 85025; 85610; 85730; 86850; 86900; 86901; 87086; 93005; 93010; 99285-25; Q9967

== ENCOUNTER 2023-07-18 04:08 | Day surgery (SDC) | payer OTHER ==
[2023-07-16 15:50] VITALS: BMI 27.6
[~2023-07-18 04:08] MED LIST: ceFAZolin SODIUM 1 GM VIAL IVPB ONE
[2023-07-18 10:13] VITALS: RESP 20
[2023-07-18] MEDS ORDERED: oxyCODONE HCL 5 MG TABLET PO PRN (11:05)
[2023-07-18] MEDS ORDERED: ONDANSETRON 4 MG/2 ML VIAL IVPUSH PRN (11:05)
[2023-07-18] MEDS ORDERED: LIDOCAINE HCL 1%, 10 MG/ML (20ML VIAL) ONE (11:08)
[2023-07-18] MEDS ORDERED: BUPIVACAINE HCL/PF 0.5% (5MG/ML) 10 ML VIAL ONE (11:08)
[2023-07-18] MEDS ORDERED: ceFAZolin SODIUM 1 GM VIAL ONE (11:09)
[2023-07-18] MEDS ORDERED: PROPOFOL 20 ML ONE ×2 (11:09→11:30)
[2023-07-18] MEDS ORDERED: DEXAMETHASONE SOD PHOSPHATE 4 MG/1 ML VIAL ONE (11:09)
[2023-07-18] MEDS ORDERED: LIDOCAINE HCL/PF 2% SDV 5ML VIAL ONE (11:09)
[2023-07-18] MEDS ORDERED: KETOROLAC TROMETHAMINE 30 MG/1 ML VIAL ONE (11:09)
[2023-07-18] MEDS ORDERED: LACTATED RINGERS SOLUTION 1,000 ML IV SCH (11:15)
[2023-07-18] MEDS ORDERED: SODIUM CHLORIDE 0.9% P/F 10 ML VIAL IJ ONE (11:31)
[2023-07-18] MEDS ORDERED: MIDAZOLAM HCL 2 MG/2 ML SINGLE DOSE VIAL ONE (11:59)
[2023-07-18] MEDS ORDERED: FENTANYL CITRATE/PF 50 MCG/ML VIAL ONE (11:59)
[2023-07-18] MEDS ORDERED: LIDOCAINE HCL 1%, 10 MG/ML (20ML VIAL) INF ONE (12:07)
[2023-07-18] MEDS ORDERED: ceFAZolin SODIUM 1 GM VIAL IVPB ONE (12:14)
[2023-07-18 14:13] VITALS: BP 125/71; PULSE 88; TEMP 97.4
== END 2023-07-18 13:35 | disposition home or self-care (01) ==
LOC: JASU-SURG 04:08
PROVIDERS: ATTEND Podiatrist Foot Surgery
PROC: 0QPQ04Z Removal of Internal Fixation Device from Right Toe Phalanx, Open Approach (ICD-10-PCS; principal; 2023-07-18 12:00)
DX: T84.84XA Pain due to internal orthopedic prosthetic devices, implants and grafts, initial encounter (principal); Y99.9 Unspecified external cause status
CPT/HCPCS: 88300-TC

== ENCOUNTER 2023-11-23 21:28 | Emergency (ER) | payer OTHER ==
[2023-11-23 21:32] VITALS: RESP 18; BMI 27.4
[2023-11-23] MEDS ORDERED: predniSONE 20 MG TABLET (UD) ONE (22:37)
[2023-11-23] MEDS ORDERED: ACETAMINOPHEN 325 MG TABLET (FP) ONE (22:38)
[2023-11-23] MEDS: predniSONE 20 MG TABLET (UD) PO ONE (22:41)
[2023-11-23] MEDS: ACETAMINOPHEN 325 MG TABLET (FP) PO ONE (22:42)
[2023-11-23] MEDS: FLUTICASONE PROP 0.05% 16 GM NASAL SPRAY NS ONE (23:22)
[2023-11-23] MEDS ORDERED: AMPICILLIN NA/SULBACTAM NA 3 GM/100 ML BAG IVPB ONE (23:54)
[2023-11-23 23:57] LABS: BASO % 0.5 % (0-2.0); EOS % 1.9 % (0-4.5); HEMATOCRIT 31.7 % (32.4-45.2); HEMOGLOBIN 10.6 GM/dL (10.7-15.3); LYMPH % 31.6 % (8-40); MCH 26.3 pg (25.7-33.7); MCHC 33.3 g/dl (32.0-36.0); MEAN PLT VOLUME 6.8 fl (7.5-11.1); PLATELET COUNT 310 10^3/uL (134-434); RBC 4.01 M/mm3 (3.60-5.2); RDW 14.7 % (11.6-15.6); WHITE BLOOD COUNT 8.2 K/mm3 (4.0-10.0)
[2023-11-23] MEDS: AMPICILLIN NA/SULBACTAM NA 3 GM in SODIUM CHLORIDE 100 ML IVPB ONE (23:59)
[2023-11-24 00:50] VITALS: BP 139/88; PULSE 98; TEMP 97.7
== END 2023-11-24 00:52 | disposition home or self-care (01) ==
LOC: JER 21:28
DX: R09.81 Nasal congestion (principal); R51.9 Headache, unspecified; J32.9 Chronic sinusitis, unspecified; M26.30 Unspecified anomaly of tooth position of fully erupted tooth or teeth
CPT/HCPCS: 36415; 70486-TC; 85025; 96365; 99284-25